=== PATIENT | female | born 1970 | race Caucasian/White ===

== ENCOUNTER → 2022-07-06 15:25 | Outpatient (BNVA) | payer OTHER, SELFPAY | PROVIDERS: PCP Internal Medicine; Referring Provider Internal Medicine; Visit Provider Physician Assistant Surgical | DX: Z13.89 Encounter for screening for other disorder (principal) ==

== ENCOUNTER → 2022-07-07 08:06 | Outpatient (BNVA) | payer OTHER, SELFPAY | PROVIDERS: PCP Internal Medicine; Visit Provider Surgery | DX: Z13.89 Encounter for screening for other disorder (principal) ==

== ENCOUNTER 2022-07-21 07:42 | Outpatient (REF) | payer OTHER, SELFPAY ==
--- NOTE | ~2022-07-21 | XR_ITS ---
EXAMINATION: XR CHEST CLINICAL INFORMATION: Bariatric service evaluation; E66.9. COMPARISON: None available. TECHNIQUE: 2 views of the chest were obtained. FINDINGS: Lungs are clear. The heart is normal in size. There is tapering at the cardiophrenic angles consistent with areolar tissue. The costophrenic sulci are clear. No effusion. Vascularity is normal. The hilar contours and visualized bony structures are unremarkable. There are surgical clips right upper abdomen, likely prior cholecystectomy. XR/XR chest 2V IMPRESSION: Unremarkable chest exam.
--- NOTE | 2022-07-21 07:48 | ECG_ITS ---
Test Reason : e66.01 Blood Pressure : / mmHG Vent. Rate : 090 BPM Atrial Rate : 090 BPM P-R Int : 136 ms QRS Dur : 078 ms QT Int : 358 ms P-R-T Axes : 072 037 053 degrees QTc Int : 437 ms Normal sinus rhythm Nonspecific ST and T wave abnormality Borderline ECG No previous ECGs available Referred By: [facility] [place] Electronically Signed By:ISABEL CARBONE
[2022-07-21 07:58] LABS: MANUAL DIFF FLAG NO
[2022-07-21 08:29] LABS: Basophils Absolute Auto 0.1 X10*3/uL (0.0-0.2); Eosinophils Absolute Auto 0.5 X10*3/uL (0.0-0.4); Eosinophils Percent Auto 5.8 % (0-4); Hematocrit 43.3 % (37.0-47.0); Hemoglobin 14.5 g/dl (12.0-16.0); Imm Gran Abs Auto 0.02 X10*3/uL (0.00-0.03); Imm Gran Pct Auto 0.2 % (0.0-0.4); Lymphocytes Absolute Auto 1.9 X10*3/uL (1.2-4.9); Lymphocytes Percent Auto 20.8 % (20-40); Mean Corpuscular HGB Conc 33.5 g/dl (31.0-35.0); Mean Corpuscular Hemoglobin 31.5 pg (27.0-33.0); Mean Corpuscular Volume 94.1 fL (80.0-98.0); Mean Platelet Volume 12.8 fL (9.4-12.3); Monocytes Absolute Auto 0.7 X10*3/uL (0.1-1.2); Monocytes Percent Auto 7.7 % (2-11); Neutrophils Absolute Auto 5.8 x10*3/uL (2.0-8.3); Neutrophils Percent Auto 64.5 % (45-73); Platelet Count 221 X10*3/uL (160-400); Red Cell Distribution Width 12.8 % (11.0-16.0); White Blood Count 8.9 X10*3/uL (4.8-10.8)
[2022-07-21 08:46] LABS: Estimated Average Glucose 105 mg/dL; Hemoglobin A1c % 5.3 %
[2022-07-21 09:07] LABS: Alanine Aminotransferase 39 U/L (0-31); Albumin Level 4.1 g/dL (3.5-5.0); Alkaline Phosphatase 110 U/L (39-117); Anion Gap 18 (12-20); Aspartate Amino Transferase 30 U/L (5-31); Bilirubin Total 0.6 mg/dL (0.0-1.0); Blood Urea Nitrogen 13 mg/dL (9-16); C Reactive Protein 0.84 mg/dL (< or = 0.50); Calcium 9.3 mg/dL (8.4-10.2); Carbon Dioxide 20 mmol/L (22-29); Chloride 105 mmol/L (96-108); Cholesterol 144 mg/dL; Estimated Glomerular Filt Rate 57; Glucose Random 98 mg/dL (60-115); HDL Cholesterol 33 mg/dL; Iron 64 mcg/dL (30-160); LDL Cholesterol Calculated 91 mg/dl; Percent Iron Saturation 20 % (15-50); Potassium 4.4 mmol/L (3.3-5.1); Sodium 139 mmol/L (135-145); Total Iron Binding Capacity 321 mcg/dL (228-428); Total Protein 7.4 g/dL (6.5-8.0); Triglycerides 100 mg/dL; Unsaturated Iron Binding 257 ug/dL
[2022-07-21 09:36] LABS: Ferritin 79 ng/mL (10-250); Folate 11.3 ng/mL (> or = 4.0); Insulin 28 uU/mL (2-29); TSH reflex Free T4 1.49 uIU/mL (0.32-4.0); Vitamin B12 323 pg/mL (200-900)
[2022-07-24 15:29] LABS: Calcium (PTHI) 9.6 mg/dL (8.6-10.4); PTHI 33 pg/mL (16-77)
[2022-07-26 12:03] LABS: Zinc 68 mcg/dL (60-130)
[2022-07-27 10:38] LABS: Vitamin A 49 mcg/dL (38-98)
[2022-07-27 16:33] LABS: Vitamin B1 7 nmol/L (8-30)
== END 2022-07-21 07:43 | disposition home or self-care (01) ==
LOC: HO.XRAY 07:42
PROVIDERS: PCP Student in an Organized Health Care Education/Training Program; Visit Provider Surgery
DX: E66.9 Obesity, unspecified (principal); Z68.38 Body mass index [BMI] 38.0-38.9, adult; K21.9 Gastro-esophageal reflux disease without esophagitis; R73.03 Prediabetes; J44.9 Chronic obstructive pulmonary disease, unspecified; E78.5 Hyperlipidemia, unspecified; I10 Essential (primary) hypertension
CPT/HCPCS: 36415; 71046; 80053; 80061; 82306; 82607; 82728; 82746; 83036; 83525; 83540; 83970; 84425; 84443; 84590; 84630; 85025; 86140; 93005

== ENCOUNTER → 2022-07-31 09:33 | Outpatient (BNVA) | payer OTHER, SELFPAY | PROVIDERS: PCP Internal Medicine; Visit Provider Surgery | DX: Z13.89 Encounter for screening for other disorder (principal) ==

== ENCOUNTER → 2022-08-08 09:46 | Outpatient (BNVA) | payer OTHER, SELFPAY | PROVIDERS: PCP Internal Medicine; Visit Provider Dietitian, Registered | DX: E66.9 Obesity, unspecified (principal); R73.03 Prediabetes; Z71.3 Dietary counseling and surveillance | CPT/HCPCS: 97802 ==

== ENCOUNTER → 2022-08-09 12:30 | Outpatient (BNVA) | payer OTHER, SELFPAY | PROVIDERS: PCP Internal Medicine; Visit Provider Counselor Mental Health | DX: F43.23 Adjustment disorder with mixed anxiety and depressed mood (principal); E66.9 Obesity, unspecified ==

== ENCOUNTER 2022-08-10 08:17 | Outpatient (REF) | payer OTHER, SELFPAY ==
--- NOTE | ~2022-08-10 | US_ITS ---
EXAMINATION: US COMPLETE ABDOMEN WITH LIVER ELASTOGRAPHY CLINICAL INFORMATION: Obesity COMPARISON: None available. TECHNIQUE: Real-time imaging of the abdominal viscera. Noninvasive ultrasound liver fibrosis assessment is performed using Stephenie ElastPQ point quantification shear wave elastography (2D-SWE) with a C5-2 MHz transducer. Multiple elastography samples are obtained. FINDINGS: PANCREAS: Normal. ABDOMINAL AORTA: The proximal, middle, and distal aortic segments are normal in caliber. INFERIOR VENA CAVA: Visualized portions are normal. LIVER: Normal. The liver demonstrates normal size, contour and echogenicity. No focal lesion or intrahepatic biliary duct dilatation. The right lobe measures 14 cm in length. The left lobe measures 10 cm in length. Portal flow is normal/hepatopedal Shear wave liver elastography median stiffness is 1.8 m/s (reference: normal median stiffness is 1.3 m/s or less). IQR/median stiffness to assess sampling precision is 0.1 (reference: good quality data set is IQR/median stiffness of 0.15 or less). GALLBLADDER: Surgically removed. COMMON BILE DUCT: Normal in caliber measuring 0.3 cm in diameter. RIGHT KIDNEY: Normal. No hydronephrosis. No renal calculi or focal parenchymal lesions. The kidney measures 9 cm in maximum dimension. LEFT KIDNEY: Normal. No hydronephrosis. No renal calculi or focal parenchymal lesions. The kidney measures 10 cm in maximum dimension. SPLEEN: Normal. The spleen measures 10 cm in maximum dimension. 1.5 cm splenule. FREE FLUID: None. US/US abdomen comp w elastography IMPRESSION: 1. Impression: Unremarkable exam 2. Liver elastography: Adequate liver sampling. Minimally elevated liver stiffness. REFERENCE: Society of Radiologists in Ultrasound Liver Stiffness Thresholds (2020): LIVER STIFFNESS THRESHOLDS: *Liver Stiffness equal or less than 1.3 m/s: High probability of being normal. *Liver Stiffness less than 1.7 m/s: In the absence of other known clinical signs, rules out compensated advanced chronic liver disease. *Liver Stiffness 1.7-2.1 m/s: Suggestive of compensated advanced chronic liver disease but need further test for confirmation. *Liver Stiffness over 2.1 m/s: Rules in compensated advanced chronic liver disease. *Liver Stiffness over 2.4 m/s: Suggestive of clinically significant portal hypertension. QUALITY OF DATA SET: *IQR/Median value equal or less than 0.15 implies a quality data set. *IQR/Median value over 0.15 implies a poor quality data set. SIGNIFICANT CHANGE FROM PRIOR EXAM: Significant change if liver stiffness measurement is 10% or greater from prior exam. OTHER CONSIDERATIONS: The stage of liver fibrosis may be overestimated in the setting of acute hepatitis, liver inflammation, elevated liver function tests, hepatic vascular congestion, obstructive cholestasis, non-fasting state, and infiltrative diseases such as amyloidosis and lymphoma. In some patients with NAFLD, the liver stiffness thresholds for compensated advanced chronic liver disease may be lower. In causes other than viral hepatitis and NAFLD, liver stiffness thresholds are not well established.
== END 2022-08-10 08:18 | disposition home or self-care (01) ==
LOC: HO.US 08:17
PROVIDERS: PCP Student in an Organized Health Care Education/Training Program; Visit Provider Surgery
DX: E66.9 Obesity, unspecified (principal); I10 Essential (primary) hypertension; E78.5 Hyperlipidemia, unspecified; R73.03 Prediabetes; K21.9 Gastro-esophageal reflux disease without esophagitis; J44.9 Chronic obstructive pulmonary disease, unspecified; Z68.38 Body mass index [BMI] 38.0-38.9, adult
CPT/HCPCS: 76705; 76981

== ENCOUNTER → 2022-08-14 07:53 | Outpatient (BNVA) | payer OTHER, SELFPAY | PROVIDERS: PCP Internal Medicine; Referring Provider Internal Medicine; Visit Provider Physician Assistant Surgical ==

== ENCOUNTER 2022-08-15 19:57 | Outpatient (REF) | payer OTHER, SELFPAY ==
[2022-08-17 14:53] LABS: H Pylori Breath Test Negative (Negative)
== END 2022-08-15 19:58 | disposition home or self-care (01) ==
LOC: HO.LNP 19:57
PROVIDERS: Visit Provider Surgery
DX: E66.9 Obesity, unspecified (principal); K21.9 Gastro-esophageal reflux disease without esophagitis
CPT/HCPCS: 83013

== ENCOUNTER 2022-08-29 09:26 | Outpatient (REF) | payer OTHER, SELFPAY ==
--- NOTE | ~2022-08-29 | FL_ITS ---
EXAMINATION: XR FLUOROSCOPY UPPER GI WITH AIR CLINICAL INFORMATION: Obesity preop. History of heartburn COMPARISON: None available. TECHNIQUE: Routine upper GI air-contrast study was performed. FINDINGS: Following oral administration of thick barium and effervescent granules in upright view there is normal propagation bolus from the oral cavity through the pharynx, esophagus into stomach without any evidence of obstruction, narrowing or stricture. On placing patient supine and prone lying, the course, caliber and peristalsis of the stomach is normal. The mucosal pattern of the stomach and the duodenum is normal. There is moderate gastroesophageal reflux without hiatal hernia. There is a small to moderate size diverticulum in the second segment of the duodenum FLUOROSCOPY TIME: 1.7 minutes DOSE AREA PRODUCT: 36.934 uGy-m2 (microgray-meter squared) FL/FL upper GI w air IMPRESSION: Moderate gastroesophageal reflux without hiatal hernia.
== END 2022-08-29 09:27 | disposition home or self-care (01) ==
LOC: HO.XRAY 09:26
PROVIDERS: PCP Internal Medicine; Visit Provider Surgery
DX: E66.9 Obesity, unspecified (principal); Z68.38 Body mass index [BMI] 38.0-38.9, adult; K21.9 Gastro-esophageal reflux disease without esophagitis
CPT/HCPCS: 74246

== ENCOUNTER → 2022-09-01 08:09 | Outpatient (BNVA) | payer OTHER, SELFPAY | PROVIDERS: PCP Internal Medicine; Visit Provider Surgery ==

== ENCOUNTER → 2022-09-12 09:36 | Outpatient (BNVA) | payer OTHER, SELFPAY | PROVIDERS: PCP Internal Medicine; Visit Provider Surgery | DX: E66.9 Obesity, unspecified (principal); R73.03 Prediabetes; Z71.3 Dietary counseling and surveillance | CPT/HCPCS: 97803 ==

== ENCOUNTER → 2022-09-14 10:00 | Outpatient (BNVA) | payer OTHER, SELFPAY | PROVIDERS: PCP Internal Medicine; Visit Provider Surgery ==

== ENCOUNTER 2022-09-20 10:33 | Day surgery (SDC) | payer OTHER, SELFPAY ==
[2022-09-14 07:12] LABS: MANUAL DIFF FLAG NO
[2022-09-14 07:48] LABS: Basophils Absolute Auto 0.1 X10*3/uL (0.0-0.2); Eosinophils Absolute Auto 0.5 X10*3/uL (0.0-0.4); Eosinophils Percent Auto 6.1 % (0-4); Hematocrit 43.1 % (37.0-47.0); Hemoglobin 14.4 g/dl (12.0-16.0); Imm Gran Abs Auto 0.01 X10*3/uL (0.00-0.03); Imm Gran Pct Auto 0.1 % (0.0-0.4); Lymphocytes Absolute Auto 1.9 X10*3/uL (1.2-4.9); Lymphocytes Percent Auto 23.7 % (20-40); Mean Corpuscular HGB Conc 33.4 g/dl (31.0-35.0); Mean Corpuscular Hemoglobin 32.1 pg (27.0-33.0); Mean Platelet Volume 14.2 fL (9.4-12.3); Monocytes Absolute Auto 0.7 X10*3/uL (0.1-1.2); Monocytes Percent Auto 8.3 % (2-11); Neutrophils Absolute Auto 4.8 x10*3/uL (2.0-8.3); Neutrophils Percent Auto 60.8 % (45-73); Platelet Count 152 X10*3/uL (160-400); Red Blood Count 4.49 X10*6/uL (4.20-5.50); Red Cell Distribution Width 12.7 % (11.0-16.0); White Blood Count 7.8 X10*3/uL (4.8-10.8)
[2022-09-14 07:52] LABS: Prothrombin Time 11.9 SEC (10.0-13.1)
[2022-09-14 07:54] LABS: Partial Thromboplastin Time 31.4 SEC (26.0-36.4)
[2022-09-14 08:36] LABS: Alanine Aminotransferase 18 U/L (0-31); Albumin Level 3.9 g/dL (3.5-5.0); Alkaline Phosphatase 92 U/L (39-117); Anion Gap 12 (12-20); Aspartate Amino Transferase 17 U/L (5-31); Bilirubin Total 0.7 mg/dL (0.0-1.0); Blood Urea Nitrogen 12 mg/dL (9-16); Calcium 9.4 mg/dL (8.4-10.2); Carbon Dioxide 25 mmol/L (22-29); Chloride 107 mmol/L (96-108); Cholesterol 124 mg/dL; Estimated Glomerular Filt Rate > 60; Glucose Random 98 mg/dL (60-115); HDL Cholesterol 38 mg/dL; LDL Cholesterol Calculated 65 mg/dl; Sodium 140 mmol/L (135-145); Total Protein 7.6 g/dL (6.5-8.0); Triglycerides 108 mg/dL
[2022-09-14 08:54] LABS: Insulin 19 uU/mL (2-29); TSH reflex Free T4 1.78 uIU/mL (0.32-4.0)
[2022-09-14 09:01] LABS: Estimated Average Glucose 100 mg/dL; Hemoglobin A1c % 5.1 %
[2022-09-14 10:17] VITALS: BMI 35.3
--- NOTE | 2022-09-16 15:15 | MHC.SHP ---
Pre-Procedural Eval Section A Date of Service: 09/16/22 The patient is an INPATIENT: No The History & Physical has been completed within 30 days and I have reviewed it.: Yes Section B Chief Complaint: Obesity, unspecified Relevant Family History (Specify if Yes): No Relevant Social History: None Present Medications: None Medical History: No relevant PMH History of Previous Operations: No relevant previous surgery Allergies: Allergies Allergy/AdvReac Type Severity Reaction Status Date / Time No Known Allergies Allergy Verified 09/12/22 10:12 Review of Systems Sugical H&P ROS: Negative: Constitution, Cardiovascular, Respiratory, Neurological, Psychiatric, Hem-Onc, Allergic/Immunologic, Gastrointestinal, Genitourinary, Musculoskeletal, Integumentary, Endocrine and Eyes/Ears/Nose/Throat Exam Surgical H&P Exam: Normal: HEENT, Normal: Heart, Normal: Lungs, Normal: Extremities, Normal: Abdomen, Normal: Skin and Normal: Neurological Plan Diagnosis/Plan: Unchanged I have reviewed the history and physical and performed a pertinent physical examination on my patient. No changes have occurred unless specified. Time Spent With Patient Time: Total time managing care of this patient today ____ minutes.
--- NOTE | 2022-09-19 09:55 | P.CONAN_ITS ---
Documented by User: Minna Wilson NP 09/19/22 09:56 HPI - Anesthesia Eval Consult details Narrative: 52yo F for Gastrectomy Sleeve,EGD,poss diaphragmatic hernia, poss ventral hernia, poss open, PMFSH Active Problems Active Problems: All Active Problems (Updated 09/14/22 @ 10:21 by Leia Wolf RN) Obesity (Acute) BMI 38.0-38.9,adult (Acute) Vitamin D deficiency (Acute) Vitamin B12 deficiency (Acute) Vitamin B1 deficiency (Acute) BMI 37.0-37.9, adult (Acute) Adjustment reaction with anxiety and depression (Acute) BMI 36.0-36.9,adult (Acute) BMI 35.0-35.9,adult (Acute) COPD (chronic obstructive pulmonary disease) (Acute) DJD (degenerative joint disease) (Acute) Insomnia (Acute) Anxiety (Acute) Depression (Acute) GERD (gastroesophageal reflux disease) (Acute) Prediabetes (Acute) Hyperlipidemia (Acute) Hypertension (Acute) Past Medical History Medical History Anxiety Arthritis BMI 35.0-35.9,adult COPD (chronic obstructive pulmonary disease) Depression DJD (degenerative joint disease) GERD (gastroesophageal reflux disease) Hyperlipidemia Hypertension Insomnia Prediabetes Seasonal allergies Smoking history Family History Family History Mother Hypertension Spinal stenosis Arthritis Kidney disease Father Diabetes Hypertension COPD (chronic obstructive pulmonary disease) Daughter Stomach problems Son Stomach problems Surgical History Surgical History (Updated 09/20/22 @ 14:25 by Mei Patel PA-C) History of ear surgery Hx of cholecystectomy Hx of colonoscopy Hx of dilation and curettage Hx of oral surgery Social History Social History (Updated 09/12/22 @ 09:43 by Marcelina Ray CMA) Household Members: None Housing: Apartment Housing Other:: mobile home Are you a primary prompt care rn to a significant other at home: No Do you presently have visiting nurse or other home services: No Alcohol intake: current Alcohol intake frequency: does not drink Patient Tobacco Use Status: Former Tobacco user Quit Date: 08/27/22 Tobacco use type: Cigarette Use of substances other than those prescribed or required for medical reasons: No Have you been hit, kicked, punched, or otherwise hurt by someone within the past year? If so, by whom?: No Do you feel safe in your current relationship?: Yes Is there a partner from a previous relationship who is making you feel unsafe now?: No Are you made to feel afraid or neglected: No Are you DNR?: No Advance Directives: No ( is primary contact) Advance Directives Information Provided: Yes Advance Directives on File: No Do you have thoughts of harming others: None Do you have a plan to hurt others: No Plan Recently lost weight without trying: No Eating poorly because of decreased appetite: No Nutrition Risks: No Nutritional Risk Patient : No FDLMP: N?A : No Poor oral hygiene: No Meds Allergies Allergy/AdvReac Type Severity Reaction Status Date / Time No Known Allergies Allergy Verified 09/20/22 10:24 Home Medications Medication Instructions Recorded Confirmed Last Taken Type acetaminophen 500 mg tablet 1,000 mg PO Q8H 07/06/22 09/12/22 Unknown History albuterol sulfate 90 mcg/actuation 2 puff inhalation Q6H PRN seasonal 07/06/22 09/14/22 Unknown History aerosol inhaler allergies clonazepam 0.5 mg tablet 0.5 mg PO DAILY PRN anxiety 07/06/22 09/14/22 Unknown History lisinopril 10 mg tablet 10 mg PO DAILY 07/06/22 09/14/22 09/19/22 History meloxicam 7.5 mg tablet 7.5 mg PO DAILY PRN pain 07/06/22 09/14/22 08/16/22 History nystatin 100,000 unit/gram topical 1 appl topical BID PRN Skin 07/06/22 09/14/22 Unknown History powder Irritation sertraline 100 mg tablet 150 mg PO QAM 07/06/22 09/14/22 09/19/22 History trazodone 100 mg tablet 100 mg PO BEDTIME 07/06/22 09/14/22 09/18/22 History pantoprazole 40 mg tablet,delayed 40 mg PO BEDTIME 09/20/22 09/20/22 09/18/22 History release Exam Exam Date and Time: September 19, 2022 0955 Height,Weight and Vital Signs: Height 5 ft 6 in Weight 99.337 kg Pertinent Lab Results Pertinent Lab Results: Laboratory Tests 09/14/22 09/14/22 09/14/22 07:05 07:10 07:10 WBC 7.8 RBC 4.49 Hgb 14.4 Hct 43.1 MCV 96.0 MCH 32.1 MCHC 33.4 RDW 12.7 Plt Count 152 L D MPV 14.2 H Immature Gran % (Auto) 0.1 Neut % (Auto) 60.8 Lymph % (Auto) 23.7 Harnett % (Auto) 8.3 Eos % (Auto) 6.1 H Baso % (Auto) 1.0 Lymph # (Auto) 1.9 [place]ett # (Auto) 0.7 Eos # (Auto) 0.5 H Baso # (Auto) 0.1 Abs Immat Gran (auto) 0.01 Absolute Neuts (auto) 4.8 Absolute Nucleated RBC 0.000 Nucleated RBC % (auto) 0.0 PT 11.9 INR 1.0 APTT 31.4 Sodium Potassium Chloride Carbon Dioxide Anion Gap BUN Creatinine Estim Creat Clear Calc Estimated GFR Random Glucose Estimat Average Glucose Hemoglobin A1c % Insulin Level Calcium Total Bilirubin AST ALT Alkaline Phosphatase C-Reactive Protein Total Protein Albumin Triglycerides Cholesterol LDL Cholesterol, Calc HDL Cholesterol TSH Blood Type O Positive Antibody Screen NEGATIVE 09/14/22 09/14/22 07:10 07:10 WBC RBC Hgb Hct MCV MCH MCHC RDW Plt Count MPV Immature Gran % (Auto) Neut % (Auto) Lymph % (Auto) [place]ett % (Auto) Eos % (Auto) Baso % (Auto) Lymph # (Auto) [place]ett # (Auto) Eos # (Auto) Baso # (Auto) Abs Immat Gran (auto) Absolute Neuts (auto) Absolute Nucleated RBC Nucleated RBC % (auto) PT INR APTT Sodium 140 Potassium 4.0 Chloride 107 Carbon Dioxide 25 Anion Gap 12 BUN 12 Creatinine 0.86 Estim Creat Clear Calc TNP Estimated GFR > 60 Random Glucose 98 Estimat Average Glucose 100 Hemoglobin A1c % 5.1 Insulin Level 19 Calcium 9.4 Total Bilirubin 0.7 AST 17 ALT 18 Alkaline Phosphatase 92 C-Reactive Protein 0.40 Total Protein 7.6 Albumin 3.9 Triglycerides 108 Cholesterol 124 LDL Cholesterol, Calc 65 HDL Cholesterol 38 TSH 1.78 Blood Type Antibody Screen Narrative Narrative: EKG 07/2022 Vent. Rate : 090 BPM ? ? Atrial Rate : 090 BPM ?? P-R Int : 136 ms? QRS Dur : 078 ms ? ? QT Int : 358 ms ? ? ? P-R-T Axes : 072 037 053 degrees ?? QTc Int : 437 ms ? Normal sinus rhythm Nonspecific ST and T wave abnormality Borderline ECG No previous ECGs available Assessment and Plan Assessment Anesthesia Assessment: Chart Reviewed Documented by User: Soto Hylton MD 09/20/22 17:09 HPI - Anesthesia Eval Consult details Narrative: 52yo F for Gastrectomy Sleeve,EGD,poss diaphragmatic hernia, poss ventral hernia, poss open, funtional status greater than 4 mets Denies any CP or SOB COPD . Will give Duo-neb treatment pre-op PMFSH Past Medical History Medical History Anxiety Arthritis BMI 35.0-35.9,adult COPD (chronic obstructive pulmonary disease) Depression DJD (degenerative joint disease) GERD (gastroesophageal reflux disease) Hyperlipidemia Hypertension Insomnia Prediabetes Seasonal allergies Smoking history Functional capacity: independent ambulation Family History Family History Mother Hypertension Spinal stenosis Arthritis Kidney disease Father Diabetes Hypertension COPD (chronic obstructive pulmonary disease) Daughter Stomach problems Son Stomach problems Family history of problems with anesthesia: No Surgical History Surgical History (Updated 09/20/22 @ 14:25 by Mei Patel PA-C) History of ear surgery Hx of cholecystectomy Hx of colonoscopy Hx of dilation and curettage Hx of oral surgery History of Problems with Anesthesia: No Social History Social History (Updated 09/12/22 @ 09:43 by Marcelina Ray CMA) Household Members: None Housing: Apartment Housing Other:: mobile home Are you a primary prompt care rn to a significant other at home: No Do you presently have visiting nurse or other home services: No Alcohol intake: current Alcohol intake frequency: does not drink Patient Tobacco Use Status: Former Tobacco user Quit Date: 08/27/22 Tobacco use type: Cigarette Use of substances other than those prescribed or required for medical reasons: No Have you been hit, kicked, punched, or otherwise hurt by someone within the past year? If so, by whom?: No Do you feel safe in your current relationship?: Yes Is there a partner from a previous relationship who is making you feel unsafe now?: No Are you made to feel afraid or neglected: No Are you DNR?: No Advance Directives: No ( is primary contact) Advance Directives Information Provided: Yes Advance Directives on File: No Do you have thoughts of harming others: None Do you have a plan to hurt others: No Plan Recently lost weight without trying: No Eating poorly because of decreased appetite: No Nutrition Risks: No Nutritional Risk Patient : No FDLMP: N?A : No Poor oral hygiene: No Meds Allergies Allergy/AdvReac Type Severity Reaction Status Date / Time No Known Allergies Allergy Verified 09/20/22 10:24 Home Medications Medication Instructions Recorded Confirmed Last Taken Type acetaminophen 500 mg tablet 1,000 mg PO Q8H 07/06/22 09/12/22 Unknown History albuterol sulfate 90 mcg/actuation 2 puff inhalation Q6H PRN seasonal 07/06/22 09/14/22 Unknown History aerosol inhaler allergies clonazepam 0.5 mg tablet 0.5 mg PO DAILY PRN anxiety 07/06/22 09/14/22 Unknown History lisinopril 10 mg tablet 10 mg PO DAILY 07/06/22 09/14/22 09/19/22 History meloxicam 7.5 mg tablet 7.5 mg PO DAILY PRN pain 07/06/22 09/14/22 08/16/22 History nystatin 100,000 unit/gram topical 1 appl topical BID PRN Skin 07/06/22 09/14/22 Unknown History powder Irritation sertraline 100 mg tablet 150 mg PO QAM 07/06/22 09/14/22 09/19/22 History trazodone 100 mg tablet 100 mg PO BEDTIME 07/06/22 09/14/22 09/18/22 History pantoprazole 40 mg tablet,delayed 40 mg PO BEDTIME 09/20/22 09/20/22 09/18/22 History release Exam Airway Mallampati Class: III Neck ROM: Full Denture: Upper and Lower Loose/Missing/Broken Teeth: Yes Assessment and Plan Assessment Anesthesia Assessment: Anesthesia Plan Discussed Final Anesthetic Review Family History of Problems with Anesthesia: No History of Problems with Anesthesia: No NPO: Yes ASA Class: III Final Preanesthetic Review: Meds/Allgs Chart Reviewed and Anes Risks/Benef Reviewed Patient Risk: Intermediate Procedure Risk: Intermediate Anesthetic Plan Anesthetic Plan: GA and Agree w/ Assess. and Plan Disposition: Standard PACU
[2022-09-19 13:43] LABS: COVID-19 Test Negative (Negative); IDNOW Serial# 08D9AD1C
[2022-09-20] VITALS (15 sets, daily range): BP systolic 117–157; BP diastolic 58–92; PULSE 71–88; RESP 12–20; TEMP 36–37.1; O2SAT 95–98
[2022-09-20] MEDS: Aprepitant 32 MG/4.4 ML VIAL IVPUSH (10:45)
[2022-09-20] MEDS: Lactated Ringers 1,000 ML 999 ML IV (10:45)
--- NOTE | 2022-09-20 12:30 | P.BOP_ITS ---
Brief Operative Note Date of Service: 09/20/22 Pre-op diagnosis: Severe obesity with comorbidities (see below) Post-op diagnosis: same Procedure: INITIAL PATIENT BMI ON PRESENTATION AT OUR OFFICE: 38.7 kg/m2 LAST BMI BEFORE SURGERY: 35.3 kg/m2 COMORBIDITIES: COPD, hypertension, hyperlipidemia, prediabetes, depression, anxiety, insomnia, GERD, liver fibrosis ?The patient presented to the Weight Management Program with significant obesity that was negatively impacting the patient's comorbidities as listed above.? The program is a phased program with a special focus on preoperative medical weight management to promote substantial weight loss and prepare the patients for the second phase of the program: bariatric surgery. The patient participated in an intensive weekly lifestyle ?intervention and exercise program during which the patient ?has lost between the initial office visit and the last preoperative visit 23.2 lbs, or % of initial actual body weight. It was deemed appropriate for the patient to now have bariatric surgery. In light of the current Covid-19 pandemic and the well documented strong association of obesity and increased risk of worse outcomes if infected with Covid-19 (REFERENCES: https://pubmed.de bi.nlm.nih.gov/80548466/ ,? https://pubmed.ncbi.nlm.nih.gov/50328035/ ), any delay in undergoing bariatric surgery may lead to the patient's worsening health condition and increased?risk of more severe Covid-19 disease if infected. In addition a recent?study from [facility] published in [facility] on 03/28/2021 ([id number]) found that, among patients with obesity, substantial weight loss achieved with surgery was associated with improved outcomes of COVID-19 infection. The findings suggest that obesity can be a modifiable risk factor for the severity of COVID-19 infection. In addition, the patient met the BMI-criteria for bariatric surgery based on the BMI on initial presentation. The patient should not be penalized for achieving such weight loss because ?it is not sustainable long-term without surgical intervention and it was achieved in preparation for bariatric surgery ?under my direction and based on my published research ([email or web address]).[email or web address] and? https://www.soard.org/article/D[address]509-[address](59)80030-X/pdf ) ?that a 10% preoperative weight loss improves long-term weight loss after surgery and reduces perioperative complications.? Insurance carriers such as [facility] have endorsed my recommendations ?and have included in their policies criteria to include a 10% preoperative weight loss requirement. PROCEDURE: Esophago-gastroscopy, laparoscopic sleeve gastrectomy and laparoscopic gastropexy INDICATIONS: This is a 52 year-old female who was electively scheduled for laparoscopic, possibly open sleeve gastrectomy. The risks and complications of the procedure were discussed with the patient in advance, particularly the possibility of ; pulmonary embolism; staple line leak; bleeding; GERD; cardiac, pulmonary, or renal complications; as well as long-term problems such as insufficient weight loss, vitamin deficiency, strictures, or ulcers. The patient understood all the risks, and was in agreement to proceed with surgery. DESCRIPTION OF PROCEDURE: After informed consent was obtained from the patient, the patient was given preoperative antibiotics, and was transferred to the operating room. After successful induction of general anesthesia, pneumatic compression devices were placed on both lower extremities. An upper endoscopy was performed next. The oropharynx and esophagus appeared to be within normal limits. There was no diaphragmatic hernia present consistent with the findings of the preoperative upper GI. The stomach was entered. Then after all fluid and air were suctioned and the stomach was fully decompressed, the scope was withdrawn and secured in the mid esophagus. The patient was then prepped and draped in the usual sterile manner, and abdominal access was established at the right upper quadrant with the Allison technique. A 12 mm blunt port was inserted, and the abdomen was insufflated with CO2 to a pressure of 15 mmHg. Under direct visualization, additional ports were placed, specifically two 5 mm Versi-step ports to the left upper quadrant, and a 5 mm Versi-Step port to the right upper quadrant. 1% lidocaine plain was used to infiltrate all port sites as well as all fascia defects. Following that, the patient was placed in a steep reverse Trendelenburg position. An additional 5 mm port was placed to the right flank for the Mediflex retractor that was used to retract the left lobe of the liver. The gastro-esophageal fat pad was opened with the ultrasonic device (Thunderbeat, Olympus) and the anterior esophagus and hiatus were exposed. The angle of His was opened with the ultrasonic device the fundus of the stomach from any diaphragmatic and splenic attachments. I then opened the gastrocolic ligament between the transverse colon and the greater curvature of the stomach with the ultrasonic device to enter the lesser sac and facilitate the ligation of the short gastric vessels. I started at a mid-point along the greater curvature and using the Thunderbeat, all short gastric vessels were divided all the way to the angle of His until the left carolina was completely dissected at its entirety. I then divided the gastro-colic ligament distally to a distance of about 3-4 cm proximal to the pylorus. ? The stomach was then divided transversely with one Endo YIFAN-45 purple and four YIFAN-60 articulating orange loads using the AEON stapler and loads. Every effort was made that the gastric sleeve had a tubular shape and an even caliber throughout. Once the sleeve resection was completed, the staple line of the gastric sleeve was reinforced with Hemoclips. The resected stomach was retrieved without difficulty from the Allison port. A gastropexy was then performed in order to prevent postoperative GERD and partial gastric volvulus. Several interrupted 2.0 Surgidac sutures were placed between the sleeve's staple line and the previously divided greater omentum and gastro-colic ligament using the Endo-Stitch device. ?An upper endoscopy was performed. There was no narrowing at the GE junction. The scope was easily advanced all the way to the pylorus which was clearly visualized. There was no narrowing anywhere and the sleeve's caliber was even throughout. The sleeve's staple line was inspected and there was no evidence of ischemia, bleeding or dehiscence. At that point the gastroscope was withdrawn from the patient?s mouth while we were decompressing the bowel and the stomach from any remaining air. I looked into the lesser sac to see how the sleeve was situating and it was situating well. There was no bleeding from the staple line, spleen, or short gastric vessels. The Mediflex retractor was removed, and the undersurface of the liver was inspected and there was no bleeding. The patient was placed in supine position. I closed the fascial defect of the 12 mm port site with a figure of eight #1 Polysorb suture. Then 30cc Ropivacaine plain with 10 mg of Dexamethasone were used to infiltrate the fascial closure as well as all skin incisions. A total of 7ml Zynrelef was applied in the Allison wound. At this point, the abdomen was deflated, all ports were removed under direct vision, and no bleeding was noted from any of the port sites. The skin incisions were irrigated with saline and were closed with 4-0 absorbable monofilament sutures. Steri-Strips and OpSites were used to cover all incisions. The patient was extubated and was transferred in stable condition to the recovery room for further care. I was present and performed all garcía parts of the procedure. Ms. Patel was the first officer. There were no residents to assist with this case. Darien Eagle MD, PhD, FACS Surgeon: Ze Eagle MD Anesthesia: GETA, local and other (TAP block and 7ml Zynrelef) Was an Animal Daycare Provider used for this Procedure?: No Animal Daycare Provider: Mei Patel Estimated blood loss (mL): 10 IV fluids (mL): 2,000 Urine output (mL): 0 (No Peck to record output) Pathology: other (stomach) Condition: stable Disposition: PACU
--- NOTE | 2022-09-20 12:33 | PM.PNGS ---
Subjective Subjective Date of Service: 09/21/22 Interval history: Feels well. Has some incisional pain and nausea. Feels better now. She is tolerating phase 1 bariatric diet Physical Exam Vital Signs: Vital Signs: Last Vital Signs Temp 98.1 F 09/20/22 10:25 Pulse 82 09/20/22 10:25 Resp 15 09/20/22 10:25 BP 136/92 H 09/20/22 10:25 Pulse Ox 96 09/20/22 10:25 BMI result Body Mass Index 35.3 GI: Inspection: Yes normal to inspection, Yes incision (clean, dry and intact) and Yes obesity Palpation (GI): Soft to palpation Extrem: Right lower extremity: normal to inspection (no calf tenderness) Left lower extremity: normal to inspection (no calf tenderness) Objective Data Active Medications Albuterol Sulfate (Albuterol Sulfate (0.083%) 2.5 Mg/3 Ml Vial.Neb) 2.5 mg INHALE ONCE PRN PRN Reason: Shortness of Breath/Wheezing Lactated Ringer's (Lr) 1,000 mls @ 100 mls/hr IVCONT .Q10H MARY Labs 09/14/22 07:10 09/14/22 07:10 Labs: Laboratory Results - last 24 hr 09/19/22 13:05 COVID-19 (ANGELINA) Negative COVID-19 Clin Com See Note Procedures Date of Service Date of Service: 09/21/22 Progress Note: A&P Assessment and plan (1) Obesity: Status: Acute Assessment and Plan: s/p laparoscopic sleeve gastrectomy and gastropexy Doing well Will check am labs and if OK the patient will be discharged home (2) BMI 35.0-35.9,adult: Status: Acute (3) COPD (chronic obstructive pulmonary disease): Status: Acute (4) DJD (degenerative joint disease): Status: Acute (5) Insomnia: Status: Acute (6) Depression: Status: Acute (7) Anxiety: Status: Acute (8) GERD (gastroesophageal reflux disease): Status: Acute (9) Prediabetes: Status: Acute (10) Hyperlipidemia: Status: Acute (11) Hypertension: Status: Acute (12) Liver fibrosis: Status: Acute (13) S/P laparoscopic sleeve gastrectomy: Status: Acute Time Spent With Patient Time: Total time managing care of this patient today ____ minutes. Quality Stroke Does the patient have a stroke diagnosis?: No VTE Prior VTE?: No VTE Risk Level:: Surgical - moderate VTE Device Contraindication: N/A - Device Ordered VTE Drug Contraindication: Treatment Not Indicated
--- NOTE | 2022-09-20 14:27 | P.DS_ITS ---
DS: Providers Provider Date of Service: 09/21/22 Primary care physician: Nathaly Treviño MD DS: Diagnosis Discharge Diagnosis (1) Obesity: Status: Acute (2) BMI 35.0-35.9,adult: Status: Acute (3) COPD (chronic obstructive pulmonary disease): Status: Acute (4) DJD (degenerative joint disease): Status: Acute (5) Insomnia: Status: Acute (6) Depression: Status: Acute (7) Anxiety: Status: Acute (8) GERD (gastroesophageal reflux disease): Status: Acute (9) Prediabetes: Status: Acute (10) Hyperlipidemia: Status: Acute (11) Hypertension: Status: Acute (12) Liver fibrosis: Status: Acute DS: Summary Hospital Course Hospital Course: ADMITTING DIAGNOSIS: morbid obesity, HTN, hyperlipidemia, GERD, depression DISCHARGE DIAGNOSIS: same, s/p laparoscopic sleeve gastrectomy PAST SURGICAL HISTORY: cholecystectomy PROCEDURE: upper endoscopy, laparoscopic sleeve gastrectomy DISCHARGE SUMMARY: History of Present Illness: The patient is a 52 year-old woman with a BMI of 38.7 kg/m2 and associated co- morbidities as described above. The patient had extensive work-up, lost 20.6 lbs preoperatively and was electively scheduled for laparoscopic, possible open sleeve gastrectomy and gastropexy. Risks and complications of the surgery were discussed with the patient in advance, particularly the possibility of , pulmonary embolism, anastomotic leak, bleeding, bowel injury, GERD, cardiac, renal or pulmonary complications. The patient understood all the risks and was in agreement with the surgical plan. Hospital Course: The patient underwent an uneventful laparoscopic sleeve gastrectomy with gastropexy on the day of admission. Postoperatively, the patient was transferred to the surgical floor. The patient received IV Acetaminophen and IV dilaudid for pain control. Patient was started on bariatric phase 1 diet POD #0. On postoperative day one, the patient was feeling well without nausea, vomiting, fevers, or tachycardia. The patient had some mild incisional pain and the abdomen was soft. On the morning of postoperative day one, the patient was continued on 1 ounce of water or ice every half hour. During the day, the patient did fairly well, having some incisional pain, but able to ambulate adequately and to tolerate liquids well. Since the patient is doing well, we decided that the patient was ready to be discharged. The patient was given instructions to follow-up with me next week and to call my office for any fever over 101, persistent abdominal pain, nausea, vomiting, GERD, symptoms of DVT such as calf tenderness, or leg swelling, or pulmonary embolism such as chest pain or shortness of breath. The patient was also instructed to drink 40-60 ounces of liquids per day using the 1-ounce cups. The patient had been given prescriptions for Tylenol for pain, Zofran prn for nausea, and pantoprazole and carafate previously. The patient was encouraged to ambulate and use the incentive spirometer. The patient was allowed to shower, but no baths, and encouraged to stay active at home. All of these instructions were given to the patient personally. All questions were answered and the patient understood all instructions, the instructions were also given to the patient in print. Time Spent with Patient Time attestation: Total time managing care of this patient today ____ minutes. Discharge coordination time: Less than 30 minutes Quality: Safe Use of Opioids Does Pt have an Active Cancer Diagnosis on the Problem List?: No Quality: Stroke Does the patient have a stroke diagnosis?: No Physical Exam Vital Signs: Vital Signs: Last Vital Signs Temp 98.1 F 09/20/22 10:25 Pulse 82 09/20/22 10:25 Resp 15 09/20/22 10:25 BP 136/92 H 09/20/22 10:25 Pulse Ox 96 09/20/22 10:25 BMI result Body Mass Index 35.3 DS: Data Data Completed and Pending Pending studies at discharge: Pending at discharge 09/20/22 14:03 Surgical [PTH] Routine Discharge Plan Discharge Patient Disposition: Home, Self-Care Referrals: Nathaly Treviño MD [Primary Care Provider] - Discharge Medications: Continued pantoprazole 40 mg tablet,delayed release (DR/EC) 40 mg PO BEDTIME clonazepam 0.5 mg tablet 0.5 mg PO DAILY PRN (Reason: anxiety) nystatin 100,000 unit/gram powder 1 appl topical BID PRN (Reason: Skin Irritation) sertraline 100 mg tablet 150 mg PO QAM albuterol sulfate 90 mcg/actuation HFA aerosol inhaler 2 puff inhalation Q6H PRN (Reason: seasonal allergies) sucralfate 100 mg/mL suspension 10 ml PO BID Qty: 400 2RF ondansetron 4 mg tablet,disintegrating 4 mg PO Q12H Qty: 20 0RF Rx Instructions: Only take one every 12 hours as needed if you have nausea Held trazodone 100 mg tablet 100 mg PO BEDTIME Hold Instructions: Resume on 09/25/22. lisinopril 10 mg tablet 10 mg PO DAILY Hold Instructions: Resume on 09/22/22. Check your blood pressure every evening and send it to Dr. Eagle. Do not take the medication before you hear from Dr. Eagle. Do not take the medication if your blood pressure is below 120/70 mmHg. Discontinued cholecalciferol (vitamin D3) 125 mcg (5,000 unit) capsule 125 mcg PO DAILY Qty: 30 2RF mecobalamin (vitamin B12) 1,000 mcg tablet,disintegrating 1,000 mcg sublingual DAILY Qty: 30 2RF Rx Instructions: place tablet under tongue and allow to dissolve for at least30 secs before swallowing meloxicam 7.5 mg tablet 7.5 mg PO DAILY PRN (Reason: pain) acetaminophen 500 mg tablet 1,000 mg PO Q8H thiamine HCl (vitamin B1) 100 mg tablet 100 mg PO DAILY Qty: 30 2RF Discharge Orders: Discharge Order (Routine); Ordered 09/21/22 Ordered By: Mei Patel Activity on Discharge: No heavy lifting Activity Restrictions/Additional Instructions: No tub baths, sex or returning to work until discussed at first post op appointment. No exercise, alcohol, tobacco or illegal drug use. Continue to use incentive spirometer hourly while awake. Walk in home for 5- 10 minutes every 2 hours during the first week. Continue phase 1 diet today and start phase 2 diet tomorrow morning. Follow all instructions in the bariatric handbook and call with any questions. 1. Please call your doctor or come back to the emergency room should any new symptoms arise. 2. You will receive a courtesy call from [facility] 24-48 hours after discharge. 3. Activity: abstain from alcohol, practice limited stair climbing, no bending, no driving, no exercise, no illicit substances, no lifting, no sex, no tub bath, no work. 4. Diet: continue as discussed with bariatric team.. 5. Dressing Change/Wound Care: Do not change or remove surgical dressings unless they are wet or soiled. 6. Call your doctor if: - Your temperature exceeds 101.5 F - You experience excessive pain or swelling - You have an unexpected reaction to medication - You have excessive bleeding - You experience continued vomiting/nausea - Your incision begins to separate - Your incision shows signs of infection such as increased redness, swelling, excessive pain, heat, or drainage (light blood or clear fluid is normal) 7. General instructions: No lifting greater than 5 lbs for the next 4 weeks[address] driving within 24 hours of taking narcotic pain medications. If you do not move your bowels in the next 2 days, please take milk of magnesia over the counter. Please follow the post op diet and do not advance your diet until you are seen in the office in about 2 weeks. Please walk around your home every hour or two to prevent blood clots from forming in your legs. You do not need to wake from sleeping to walk. Please sleep in a bed or couch to prevent kinking at the hips and knees. Please take your incentive spirometer (your lung bilingual kindergarten teacher) home with you and use it for the next few days to prevent pneumonias. You may shower, no hot tubs, baths or swimming pools. Please call the office with any questions or concerns such as increasing abdominal pain, fever, chills, shortness of breath, chest pain, leg pain or swelling, or redness or drainage from your incisions. Do not hesitate to contact the office with any questions at . The patient's medical history has been reviewed and they are considered low risk for post op DVT and therefore DVT prophylaxis is not considered necessary. Travel after surgery was reviewed. The patient has not disclosed any travel plans during the first 30 days after surgery and they have been advised that within the first 30 days after surgery any bus, plane, train or car travel over 2 hours in duration is contraindicated due to the possibility of developing blood clots from immobility. Any travel, needs to include periods of ambulation of 10 minutes in duration every 2 hours. The patient was instructed to discuss any plans for travel during this period with their bariatric surgeon. Discharge Date/Time: 09/21/22 14:04
[2022-09-20] MEDS: ondansetron HCL 4 MG/2 ML VIAL IVPUSH (14:45)
[2022-09-20 14:47] LABS: Hematocrit 39.1 % (37.0-47.0)
--- NOTE | 2022-09-20 14:55 | PHA.MEDREC ---
Pharmacy Consult ? Medication Reconciliation Pharmacy has reviewed the medication reconciliation done by RN
[2022-09-20 15:07] LABS: Anion Gap 18 (12-20); Blood Urea Nitrogen 9 mg/dL (9-16); Calcium 8.7 mg/dL (8.4-10.2); Carbon Dioxide 18 mmol/L (22-29); Chloride 107 mmol/L (96-108); Creatinine Clr Calc Pharmacy 94.1; Estimated Glomerular Filt Rate > 60; Glucose Random 115 mg/dL (60-115); Potassium 3.4 mmol/L (3.3-5.1); Sodium 140 mmol/L (135-145)
[2022-09-20] MEDS: fentaNYL citrate/PF 100 MCG/2 ML VIAL 25 MCG IVPUSH (16:01)
[2022-09-20] MEDS: Famotidine/PF 20 MG/2 ML VIAL IVPUSH ×2 (16:41→20:04)
[2022-09-20] MEDS: Lactated Ringers 1,000 ML 100 ML IVCONT (16:46)
[2022-09-20] MEDS: ceFAZolin Sodium/Dextrose,Iso 2 GM/50 ML PIGGYBACK IV (17:19)
[2022-09-20] MEDS: Metoclopramide HCl 10 MG/2 ML VIAL IVPUSH (18:24)
[2022-09-20] MEDS: Acetaminophen 1,000 MG/100 ML PIGGYBACK 400 MG IV (20:04)
[2022-09-20] MEDS: traZODone HCL 100 MG TABLET PO (20:07)
[2022-09-20] MEDS: lisinopriL 10 MG TABLET PO (20:07)
[2022-09-20] MEDS: 0.9 % Sodium Chloride Flush 3 ML SYRINGE IVFLUSH (20:08)
[2022-09-21] MEDS: Acetaminophen 1,000 MG/100 ML PIGGYBACK 400 MG IV ×2 (02:25→09:08)
[2022-09-21] MEDS: Lactated Ringers 1,000 ML 100 ML IVCONT (02:25)
[2022-09-21 03:42] VITALS: BP 138/78; PULSE 57; RESP 16; TEMP 36; O2SAT 96
[2022-09-21 05:56] LABS: Basophils Percent Auto 0.2 % (0-2); Hematocrit 40.1 % (37.0-47.0); Hemoglobin 13.4 g/dl (12.0-16.0); Imm Gran Abs Auto 0.06 X10*3/uL (0.00-0.03); Imm Gran Pct Auto 0.5 % (0.0-0.4); Lymphocytes Absolute Auto 0.9 X10*3/uL (1.2-4.9); Lymphocytes Percent Auto 7.2 % (20-40); MANUAL DIFF FLAG SCAN; Mean Corpuscular HGB Conc 33.4 g/dl (31.0-35.0); Mean Corpuscular Hemoglobin 31.3 pg (27.0-33.0); Mean Corpuscular Volume 93.7 fL (80.0-98.0); Mean Platelet Volume 14.3 fL (9.4-12.3); Monocytes Absolute Auto 0.9 X10*3/uL (0.1-1.2); Monocytes Percent Auto 7.5 % (2-11); Neutrophils Absolute Auto 10.1 x10*3/uL (2.0-8.3); Neutrophils Percent Auto 84.6 % (45-73); Platelet Count 143 X10*3/uL (160-400); Red Blood Count 4.28 X10*6/uL (4.20-5.50); Red Cell Distribution Width 12.4 % (11.0-16.0); SCAN SMEAR FLAG 1; White Blood Count 11.9 X10*3/uL (4.8-10.8)
[2022-09-21 05:58] LABS: PLT ABN DIST 1
[2022-09-21 06:04] LABS: Anion Gap 14 (12-20); Blood Urea Nitrogen 6 mg/dL (9-16); Calcium 9.5 mg/dL (8.4-10.2); Carbon Dioxide 20 mmol/L (22-29); Chloride 107 mmol/L (96-108); Creatinine Clr Calc Pharmacy 101.2; Estimated Glomerular Filt Rate > 60; Glucose Random 139 mg/dL (60-115); Potassium 4.2 mmol/L (3.3-5.1); Sodium 137 mmol/L (135-145)
[2022-09-21 06:17] LABS: SLIDE REVIEW VERIFIED
[2022-09-21] MEDS: ondansetron HCL 4 MG/2 ML VIAL IVPUSH (06:32)
[2022-09-21 07:39] VITALS: BP 136/68; PULSE 60; RESP 16; TEMP 36.7; O2SAT 97
[2022-09-21] MEDS: Famotidine/PF 20 MG/2 ML VIAL IVPUSH (07:44)
[2022-09-21] MEDS: Sertraline HCL 50 MG TABLET 150 MG PO (07:47)
[2022-09-21] MEDS: Metoclopramide HCl 10 MG/2 ML VIAL IVPUSH (09:09)
--- NOTE | 2022-09-21 11:15 | MHC.CM.PN ---
Addendum entered by Edyta Santiago 09/21/22 14:49: PT WILL DC HOME TODAY WITH NO SERVICES Original Note: PT REPORTS SHE LIVES WITH HER AND IS INDEPENDENT WITH CARE PT HAS NO DME AND USES NO SERVICES SHE DECLINES TO COMPLETE A HCP TODAY, BUT DOES ACCEPT THE INFORMATION AND DOCUMENT TO CONSIDER AT A LATER TIME PCP: OBEY CARRION DCP: HOME NO SERVICES VIA FAMILY TRANSPORT
[2022-09-21 11:37] VITALS: BP 143/74; PULSE 63; RESP 18; TEMP 36.6; O2SAT 96
[2022-09-21 11:42] VITALS: O2SAT 96
--- NOTE | 2022-09-21 13:55 | HO.POSTANES ---
Post Anesthesia Evaluation Post Anesthesia Evaluation Date of Service: 09/21/22 Vital Signs: Vital Signs Temp Pulse Resp BP Pulse Ox O2 Del Method 09/21/22 11:42 96 Room Air 09/21/22 11:37 97.9 F 63 18 143/74 H 96 Room Air 09/21/22 07:39 98.1 F 60 16 136/68 97 Room Air 09/21/22 03:42 96.8 F 57 16 138/78 96 Room Air Anesthesia: General Endotracheal-GETA Mental Status: Awake Pain Control: Satisfactory Nausea/Vomiting: None Hydration: Adequate Anesthesia-Related Issues: No Anes. Related Issues
== END 2022-09-21 14:04 | disposition home or self-care (01) ==
LOC: HO.SSS 14:25 → HO.S3 14:49
PROVIDERS: Physician Assistant; Physician Assistant Surgical; PCP Internal Medicine; Visit Provider Surgery
PROC: (CPT 43845; principal; 2022-09-20 12:40)
DX: E66.9 Obesity, unspecified (principal); Z68.35 Body mass index [BMI] 35.0-35.9, adult; J44.9 Chronic obstructive pulmonary disease, unspecified; I10 Essential (primary) hypertension; E78.5 Hyperlipidemia, unspecified; R73.03 Prediabetes; K21.9 Gastro-esophageal reflux disease without esophagitis; K74.00 Hepatic fibrosis, unspecified; G47.00 Insomnia, unspecified; K44.9 Diaphragmatic hernia without obstruction or gangrene; F32.A Depression, unspecified; F41.9 Anxiety disorder, unspecified; M19.90 Unspecified osteoarthritis, unspecified site; E53.8 Deficiency of other specified B group vitamins; E51.9 Thiamine deficiency, unspecified; E55.9 Vitamin D deficiency, unspecified; J30.2 Other seasonal allergic rhinitis; Z20.822 Contact with and (suspected) exposure to COVID-19; Z87.891 Personal history of nicotine dependence; Z79.899 Other long term (current) drug therapy
CPT/HCPCS: 43775; 43659; 36415; 80048; 80053; 80061; 83036; 83525; 84443; 85014; 85018; 85025; 85610; 85730; 86140; 86850; 86900; 86901; 87635; 88304; 88305; 88307; 88342; A4649; C9088; C9145; J0131; J0690; J1100; J1170; J2250; J2405; J2550; J2765; J2795; J3010

== ENCOUNTER → 2022-09-26 09:42 | Outpatient (BNVA) | payer OTHER, SELFPAY | PROVIDERS: PCP Internal Medicine; Visit Provider Physician Assistant Surgical ==

== ENCOUNTER → 2022-10-10 10:42 | Outpatient (BNVA) | payer OTHER, SELFPAY | PROVIDERS: PCP Internal Medicine; Visit Provider Dietitian, Registered | DX: E66.9 Obesity, unspecified (principal); R73.03 Prediabetes; Z71.3 Dietary counseling and surveillance | CPT/HCPCS: 97803 ==

== ENCOUNTER 2022-10-24 08:18 | Outpatient (AMB) | payer OTHER, SELFPAY ==
--- NOTE | 2022-10-24 08:23 | A.OFFVIS_ITS ---
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 Presents for 1 month post op visit. Weight today is 195.8 pounds, with a BMI of 31.6. There has been a 44.2 pound weight loss,(initial weight 240 pounds) since starting the program on 07/07/22 reflecting a 18.4% total body weight loss and a weight loss of 22.7 pounds since surgery (operative weight 218.5 pounds) reflecting a 10.3% TBWL since surgery. No complaints of nausea, emesis, abdomin al pain or reflux. Reports infrequent but normal bowel movements every 1-2 days and uses stool softeners regularly. Original weight on 07/07/22 was 240 pounds and op weight was 218.5 pounds. Present meal plan includes: malaysian yogurt daily yogurt drink 10 gram protein daily mashed potatoes Previously doing Orgain, now doesn't like Tried Baiyaxuan core power Is willing to try isopure flavorless Drinking 50 oz ? Exercise routine includes: stationary bike 2 x per day 500 calories each session, walking 0.5-1 mile 5 days per week PFSH Medical History Anxiety Arthritis BMI 35.0-35.9,adult COPD (chronic obstructive pulmonary disease) Depression DJD (degenerative joint disease) GERD (gastroesophageal reflux disease) Hyperlipidemia Hypertension Insomnia Prediabetes Seasonal allergies Smoking history Surgical History History of ear surgery Hx of cholecystectomy Hx of colonoscopy Hx of dilation and curettage Hx of oral surgery S/P laparoscopic sleeve gastrectomy Family History Mother Hypertension Spinal stenosis Arthritis Kidney disease Father Diabetes Hypertension COPD (chronic obstructive pulmonary disease) Daughter Stomach problems Son Stomach problems Social History Household Members: None Housing: Apartment Housing Other:: mobile home Are you a primary housekeeper caregiver to a significant other at home: No Do you presently have visiting nurse or other home services: No Alcohol intake: current Alcohol intake frequency: does not drink Patient Tobacco Use Status: Former Tobacco user Quit Date: 08/27/22 Tobacco use type: Cigarette service: No Physical Exam Vital Signs: Last Vital Signs Temp 97.8 F 10/24/22 08:27 Pulse 67 10/24/22 08:27 BP 148/77 H 10/24/22 08:27 Pulse Ox 95 10/24/22 08:27 Oxygen Delivery Method Room Air 10/24/22 08:27 BMI result Body Mass Index 31.6 GI Inspection: Yes incision (well healed) Assessment & Plan Assessment & Plan (1) S/P laparoscopic sleeve gastrectomy: Code(s): Z98.84 - Bariatric surgery status Plan: f/u Delmis as scheduled Stop mashed potatoes malaysian yogurt yogurt drink isopure flavorless shake 1 scoop in 8 oz water x 2 talk w Delmis about MVI and Basim+D Exercise is great, continue Medications: Discontinued pantoprazole 40 mg PO DAILY 90 tabs 0RF K21.9 - Gastro-esophageal reflux disease without esophagitis Coding Level of Care Code Global (85179) Diagnoses S/P laparoscopic sleeve gastrectomy Z98.84
[2022-10-24 08:27] VITALS: BP 148/77; PULSE 67; TEMP 36.6; O2SAT 95; BMI 31.6
== END 2022-10-24 09:01 | disposition home or self-care (01) ==
PROVIDERS: PCP Internal Medicine; Visit Provider Physician Assistant Surgical
DX: E66.9 Obesity, unspecified (principal); Z68.31 Body mass index [BMI] 31.0-31.9, adult; Z90.3 Acquired absence of stomach [part of]; Z98.84 Bariatric surgery status
CPT/HCPCS: 99024

== ENCOUNTER → 2022-10-24 08:18 | Outpatient (BNVA) | payer OTHER, SELFPAY | PROVIDERS: PCP Internal Medicine; Visit Provider Physician Assistant Surgical | DX: Z98.84 Bariatric surgery status (principal) ==

== ENCOUNTER → 2022-11-01 17:17 | Outpatient (BNVA) | payer OTHER, SELFPAY | PROVIDERS: PCP Internal Medicine; Visit Provider Counselor Mental Health ==

== ENCOUNTER 2022-11-06 09:10 | Outpatient (AMB) | payer OTHER, SELFPAY ==
--- NOTE | 2022-11-06 09:13 | A.OFFVIS_ITS ---
Intake VS Expanded 11/06/22 09:39 Height 5 ft 6 in Weight 194 lb BMI 31.3 Body Fat 83.4 Body Fat Percentage 42.9 Muscle Mass 105.4 Visceral Mass 10 Water Mass 79.0 BMR 1,545 Intake Visit Reasons: (OV) PO LSG 09/20/22 Allergies No Known Allergies Allergy (Verified 10/24/22 08:24) HPI Nutrition Presentation Details LSG DOS (09/20/22) Preop weight 213# weight at 1 wk PO 205# Last weight 10/24 195# current weihgt at 7 WKS PO 194# Reason for consult elevated BMI Diet Assmnt Details Pt states, i haven't been following any plan . Having a drinkable yogurt (10g protein, 7g sugar, 80 calories Dannon), plus a mission protein wrap with 4 slices of turkey and 1/2 slice cheese. She has been eating a lot of fruit - watermelon yesterday, applesauce, mandarin oranges etc. has also been eating raw veg not good at planning my meals ahead of time Vitamins: I gave her vitamin samples last time we spoke - soft chews and 3in1 but she disliked everything. Also gave procare samples 45mg iron, hasn't tried yet. Has been taking B1 and B12 Exercise: 40 minutes on stationary bike plus 1 mile walk in the morning, then will repeat in the evenings. Dietary counseling reduction Assessment Nutrition recommendation RD nutrition education Diagnosis Nutrition problem #1 overweight/obesity As related to (etiology) #1 excess energy intake and physical inactivity As evidenced by (sign/symptom) #1 high BMI Nutrition problem #2 undesirable food choices As related to (etiology) #2 unsure how to apply info and unwilling to learn/apply As evidenced by (sign/symptom) #2 food recall Monitoring/Goals Nutrition problem monitoring total energy intake, level of knowledge/skill, total PRO intake, total CHO intake and weight Outcome progress verbalized understanding Learning/Education Readiness to learn good Most Recent Diabetes Results: Cholesterol 124 mg/dL 09/14/22 HDL Cholesterol 38 mg/dL 09/14/22 Triglycerides 108 mg/dL 09/14/22 Creatinine 0.79 mg/dL (0.5-1.4) 09/21/22 Blood Urea Nitrogen 6 mg/dL (9-16) L 09/21/22 Sodium 137 mmol/L (135-145) 09/21/22 Potassium 4.2 mmol/L (3.3-5.1) 09/21/22 Chloride 107 mmol/L (96-108) 09/21/22 Carbon Dioxide 20 mmol/L (22-29) L 09/21/22 Calcium 9.5 mg/dL (8.4-10.2) 09/21/22 AST 17 U/L (5-31) 09/14/22 ALT 18 U/L (0-31) 09/14/22 Total Protein 7.6 g/dL (6.5-8.0) 09/14/22 Albumin 3.9 g/dL (3.5-5.0) 09/14/22 [facility] Medical History Anxiety Arthritis BMI 35.0-35.9,adult COPD (chronic obstructive pulmonary disease) Depression DJD (degenerative joint disease) GERD (gastroesophageal reflux disease) Hyperlipidemia Hypertension Insomnia Prediabetes Seasonal allergies Smoking history Surgical History History of ear surgery Hx of cholecystectomy Hx of colonoscopy Hx of dilation and curettage Hx of oral surgery S/P laparoscopic sleeve gastrectomy Family History Mother Hypertension Spinal stenosis Arthritis Kidney disease Father Diabetes Hypertension COPD (chronic obstructive pulmonary disease) Daughter Stomach problems Son Stomach problems Social History Household Members: None Housing: Apartment Housing Other:: mobile home Are you a primary medicare biller to a significant other at home: No Do you presently have visiting nurse or other home services: No Alcohol intake: current Alcohol intake frequency: does not drink Patient Tobacco Use Status: Former Tobacco user Quit Date: 08/27/22 Tobacco use type: Cigarette service: No Assessment & Plan Assessment & Plan (1) Obesity (BMI 30-39.9): Code(s): E66.9 - Obesity, unspecified Medications: Discontinued pantoprazole 40 mg PO DAILY 90 tabs 0RF K21.9 - Gastro-esophageal reflux disease without esophagitis Patient Instructions: Recommended she review her bariatric book as a reminder of what she should do/avoid for this stage. verbally discussed as well. Discussed factors that can stretch stomach out, and reason for dietary recommendations. Suggested avoiding cooked veg for now until she is able to meet her protein needs. Swap out some cardio for weight training. Will start bariatric vitamins now, contact me if any concerns or reason she is until to take them Chobani 25g yogurt OR can try smoothie with 1/2 serving strawberries, 1/2 banana, fairlife milk and protein powder - make last 2-3 hours lunch: 2oz protein - EX 1/2 wrap with 2 slices of turkey S: glass of fairlife milk or protein bar, or yogurt D 2oz protein F/u with me 11/20 8:30 am OV per pt preference . Encouraged communication in the meantime if she is unable to meet her protein goals or follow her nutrition plan. Coding Level of Care Code Nutr Indiv Subseq (32165) Diagnoses Obesity (BMI 30-39.9) E66.9 Time Spent (min) 30
[2022-11-06 09:39] VITALS: BMI 31.3
== END 2022-11-06 09:54 | disposition home or self-care (01) ==
PROVIDERS: PCP Internal Medicine; Visit Provider Dietitian, Registered
DX: E66.9 Obesity, unspecified (principal)

== ENCOUNTER → 2022-11-06 09:10 | Outpatient (BNVA) | payer OTHER, SELFPAY | PROVIDERS: PCP Internal Medicine; Visit Provider Dietitian, Registered | DX: E66.9 Obesity, unspecified (principal); K21.9 Gastro-esophageal reflux disease without esophagitis; Z68.31 Body mass index [BMI] 31.0-31.9, adult; Z90.49 Acquired absence of other specified parts of digestive tract; Z90.3 Acquired absence of stomach [part of]; Z71.3 Dietary counseling and surveillance | CPT/HCPCS: 97803 ==

== ENCOUNTER 2022-11-20 08:17 | Outpatient (AMB) | payer OTHER, SELFPAY ==
--- NOTE | 2022-11-20 08:23 | MHC.AMNUTRGE ---
Intake VS Expanded 11/20/22 08:42 Height 5 ft 6 in Weight 191 lb BMI 30.8 Body Fat 82.4 Body Fat Percentage 43.0 Muscle Mass 103.2 Visceral Mass 10 Water Mass 77.4 BMR 1,517 Intake Visit Reasons: (OV) PO LSG 09/20/22 Allergies No Known Allergies Allergy (Verified 10/24/22 08:24) HPI Nutrition Presentation Details LSG DOS (09/20/22) Preop weight 213# weight at 1 wk PO 205# weihgt at 7 WKS PO 194# weight at 9 wks PO 191# Reason for consult elevated BMI Diet Assmnt Details Having 2 drinkable yogurt (each 10g protein, 7g sugar, 80 calories Dannon), plus a 45kcal mission protein wrap with tuna and 1 slice cheese - last appt recommended not having the wrap. Logs tis emal in tracker at 35g protein for 270kcal dinner last night 2.5oz grilled terikayi chicken Is doing better with portions, keeping them under 3oz food total. doing better solids/liquids Vitamins: I gave her vitamin samples procare 45mg iron and taking, tolerating fine . Exercise: 40 minutes on stationary bike plus 1 mile walk in the morning, then will repeat in the evenings. Is also planning to include 3 days strength training as we discussed last appt Dietary counseling reduction Assessment Nutrition recommendation RD nutrition education Diagnosis Nutrition problem #1 overweight/obesity As related to (etiology) #1 excess energy intake and physical inactivity As evidenced by (sign/symptom) #1 high BMI Monitoring/Goals Nutrition problem monitoring total energy intake, level of knowledge/skill, total PRO intake, total CHO intake and weight Outcome progress progressing Learning/Education Readiness to learn good Stages of change action Educational materials provided Yes Most Recent Diabetes Results: Cholesterol 124 mg/dL 09/14/22 HDL Cholesterol 38 mg/dL 09/14/22 Triglycerides 108 mg/dL 09/14/22 Creatinine 0.79 mg/dL (0.5-1.4) 09/21/22 Blood Urea Nitrogen 6 mg/dL (9-16) L 09/21/22 Sodium 137 mmol/L (135-145) 09/21/22 Potassium 4.2 mmol/L (3.3-5.1) 09/21/22 Chloride 107 mmol/L (96-108) 09/21/22 Carbon Dioxide 20 mmol/L (22-29) L 09/21/22 Calcium 9.5 mg/dL (8.4-10.2) 09/21/22 AST 17 U/L (5-31) 09/14/22 ALT 18 U/L (0-31) 09/14/22 Total Protein 7.6 g/dL (6.5-8.0) 09/14/22 Albumin 3.9 g/dL (3.5-5.0) 09/14/22 PFSH Medical History Anxiety Arthritis BMI 35.0-35.9,adult COPD (chronic obstructive pulmonary disease) Depression DJD (degenerative joint disease) GERD (gastroesophageal reflux disease) Hyperlipidemia Hypertension Insomnia Prediabetes Seasonal allergies Smoking history Surgical History History of ear surgery Hx of cholecystectomy Hx of colonoscopy Hx of dilation and curettage Hx of oral surgery S/P laparoscopic sleeve gastrectomy Family History Mother Hypertension Spinal stenosis Arthritis Kidney disease Father Diabetes Hypertension COPD (chronic obstructive pulmonary disease) Daughter Stomach problems Son Stomach problems Social History Household Members: None Housing: Apartment Housing Other:: mobile home Are you a primary resident care provider to a significant other at home: No Do you presently have visiting nurse or other home services: No Alcohol intake: current Alcohol intake frequency: does not drink Patient Tobacco Use Status: Former Tobacco user Quit Date: 08/27/22 Tobacco use type: Cigarette service: No Assessment & Plan Assessment & Plan (1) Obesity (BMI 30-39.9): Code(s): E66.9 - Obesity, unspecified Medications: Discontinued pantoprazole 40 mg PO DAILY 90 tabs 0RF K21.9 - Gastro-esophageal reflux disease without esophagitis Patient Instructions: Doing better getting enough protein, monitoring portions, and following post bariatric diet recs. no changes made, but recommended avoiding low carb wraps for now to focus on protein. Provided patient samples Pro Care bariatric vitamin 45 mg per day. Recommended adding calcium supplement 600 mg daily. f/u at 3 MO PO appt 12/21 8:30. continue to avoid raw fruits/veg until then and communicate any issues if not meeting protein needs Coding Level of Care Code Nutr Indiv Subseq (39278) Diagnoses Obesity (BMI 30-39.9) E66.9 Time Spent (min) 30
[2022-11-20 08:42] VITALS: BMI 30.8
== END 2022-11-20 08:42 | disposition home or self-care (01) ==
PROVIDERS: PCP Internal Medicine; Visit Provider Dietitian, Registered
DX: E66.9 Obesity, unspecified (principal)

== ENCOUNTER → 2022-11-20 08:17 | Outpatient (BNVA) | payer OTHER, SELFPAY | PROVIDERS: PCP Internal Medicine; Visit Provider Dietitian, Registered | DX: E66.9 Obesity, unspecified (principal); Z68.30 Body mass index [BMI] 30.0-30.9, adult; R73.03 Prediabetes; Z98.84 Bariatric surgery status; Z71.3 Dietary counseling and surveillance | CPT/HCPCS: 97803 ==

== ENCOUNTER → 2022-11-29 19:59 | Outpatient (BNVA) | payer OTHER, SELFPAY | PROVIDERS: PCP Internal Medicine; Visit Provider Counselor Mental Health ==

== ENCOUNTER 2022-12-06 19:07 | Outpatient (AMB) | payer OTHER, SELFPAY ==
--- NOTE | 2022-12-13 14:37 | MHC.WMTHER ---
Intake Intake Visit Reasons: group therapy Allergies No Known Allergies Allergy (Verified 10/24/22 08:24) PFSH Medical History Anxiety Arthritis BMI 35.0-35.9,adult COPD (chronic obstructive pulmonary disease) Depression DJD (degenerative joint disease) GERD (gastroesophageal reflux disease) Hyperlipidemia Hypertension Insomnia Prediabetes Seasonal allergies Smoking history Surgical History History of ear surgery Hx of cholecystectomy Hx of colonoscopy Hx of dilation and curettage Hx of oral surgery S/P laparoscopic sleeve gastrectomy Family History Mother Hypertension Spinal stenosis Arthritis Kidney disease Father Diabetes Hypertension COPD (chronic obstructive pulmonary disease) Daughter Stomach problems Son Stomach problems Social History Household Members: None Housing: Apartment Housing Other:: mobile home Are you a primary daycare provider to a significant other at home: No Do you presently have visiting nurse or other home services: No Alcohol intake: current Alcohol intake frequency: does not drink Patient Tobacco Use Status: Former Tobacco user Quit Date: 08/27/22 Tobacco use type: Cigarette service: No Behavioral Health Assessment Weight Management Therapy Therapy Notes Details Patient is several months post weight loss surgery. She is attending therapy group to help build and implement appropriate life style habits and coping mechanisms in place of food. Group session today on boundaries, patient shared appropriately and offered support to others. Pt is looking to have weight loss surgery to help improve her health and quality of life. Pt reported being in therapy 2-3 years ago but not currently. She reported having a high stress job and always experiences vicarious trauma through her work so at times reaches out for help. Pt is taking medication for depression/anxiety prescribed by her doctor. No history of drug or alcohol abuse, or inpatient psychiatric admissions. Presenting Concerns Referral Source provider Reason for referral weight loss surgery evaluation Precipitating Event obesity Living Situation Current Living Situation Own At risk of losing current housing? No Satisfied with current living situation? Yes Comments Pt lives with her . Food/Weight/Diet Expectations of change weight loss and maintenance History/Relationship with food She stated that her father was the person who always made the meals in her home, he made everything from scratch but not healthy. She stated that everyone in her family is obese and they were never taught to stop eating when they are full. Pt stated that she herself does not likes to cook so she would often eat frozen foods, fast food, takeout, easy meals, lots of coffee and coca cola. History/Relationship with weight Pt reported that she was overweight since middle school and then had a thyroid infection which caused her to loose excess weight, initially she was being called anorexic or bulimic until they find out about her thyroid. She then started to gain weight in her 30's but was thin until then. She is currently at her heaviest. History/Relationship with dieting 10-15lbs with WW and exercise. Binge Eating Do you frequently eat large amounts of food in short periods of time, not feeling physically hungry? No Do you feel out of control when you eat a large amount of food in a short period of time? No Do you eat large amounts of food rapidly and typically alone? No Night Eating Do you wake up at least once during the night to eat? No If you wake up in the night, do you find that it is necessary to eat something in order to fall back asleep? No Do you have little or no appetite in the morning and feel very hungry in the evening, often overeating between dinner and when you go to bed? No Social History Family history and relationship She has been to her for 5 years and they have been together for 8. She has two adult children from her first marriage. Pt is one of 3 siblings, the youngest raised by her parents in a normal upbringing. 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 Cultural/Ethnic information Legal Involvement and History Current or historical involvement with the legal system? none Education Highest grade completed high school Preferred learning style Auditory, Verbal, Written, Learn by doing and Visual Currently enrolled in educational program? No Interested in further educational program? 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 None Service Service? No Mental Health and Addiction Treatment Current/Past substance abuse? No Current/Past addictive behavior concerns? No Medical and Physical Health Summary Physical exam in the last year? Yes Medications Is the patient compliant with medications? Yes Does the patient have Almonte Guardian in place? Not applicable Does the patient use complimentary health approaches? No Trauma/Abuse History History of trauma? No Assessment & Plan Assessment & Plan (1) Adjustment reaction with anxiety and depression: Code(s): F43.23 - Adjustment disorder with mixed anxiety and depressed mood (2) Obesity: Code(s): E66.9 - Obesity, unspecified Plan Patient is post bariatric surgery and in need of ongoing support to help reach her goals. She is appropriate for group therapy. Coding Level of Care Code Grp Psych (98622) Diagnoses Adjustment reaction with anxiety and depression F43.23 Obesity E66.9 Time Spent (min) 60
== END 2022-12-08 09:56 | disposition home or self-care (01) ==
LOC: HO.HBST 19:07
PROVIDERS: PCP Internal Medicine; Visit Provider Counselor Mental Health
DX: F43.23 Adjustment disorder with mixed anxiety and depressed mood (principal); E66.9 Obesity, unspecified; Z68.30 Body mass index [BMI] 30.0-30.9, adult
CPT/HCPCS: 99499

== ENCOUNTER → 2022-12-06 19:07 | Outpatient (BNVA) | payer OTHER, SELFPAY | PROVIDERS: PCP Internal Medicine; Visit Provider Counselor Mental Health ==

== ENCOUNTER → 2022-12-26 08:12 | Outpatient (BNVA) | payer OTHER, SELFPAY | PROVIDERS: PCP Internal Medicine; Visit Provider Dietitian, Registered | DX: E66.9 Obesity, unspecified (principal); R73.03 Prediabetes; Z98.84 Bariatric surgery status; Z71.3 Dietary counseling and surveillance | CPT/HCPCS: 97803 ==

== ENCOUNTER 2022-12-27 19:14 | Outpatient (AMB) | payer OTHER, SELFPAY ==
--- NOTE | 2023-01-03 11:05 | A.OFFWM_ITS ---
Intake Intake Visit Reasons: Group Therapy Allergies No Known Allergies Allergy (Verified 10/24/22 08:24) PFSH Medical History Anxiety Arthritis BMI 35.0-35.9,adult COPD (chronic obstructive pulmonary disease) Depression DJD (degenerative joint disease) GERD (gastroesophageal reflux disease) Hyperlipidemia Hypertension Insomnia Prediabetes Seasonal allergies Smoking history Surgical History History of ear surgery Hx of cholecystectomy Hx of colonoscopy Hx of dilation and curettage Hx of oral surgery S/P laparoscopic sleeve gastrectomy Family History Mother Hypertension Spinal stenosis Arthritis Kidney disease Father Diabetes Hypertension COPD (chronic obstructive pulmonary disease) Daughter Stomach problems Son Stomach problems Social History Household Members: None Housing: Apartment Housing Other:: mobile home Are you a primary health care facility administrator to a significant other at home: No Do you presently have visiting nurse or other home services: No Alcohol intake: current Alcohol intake frequency: does not drink Patient Tobacco Use Status: Former Tobacco user Quit Date: 08/27/22 Tobacco use type: Cigarette service: No Behavioral Health Assessment Weight Management Therapy Therapy Notes Details Group therapy session, continuing the conversation on emotional/binge eating from previous weeks workshop. Discussed somatic therapies and POV of the disordered eating as a symptom. Patient was enagaged and cooperative. Patient is several months post weight loss surgery. She is attending therapy group to help build and implement appropriate life style habits and coping mechanisms in place of food. Group session today on boundaries, patient shared appropriately and offered support to others. Pt is looking to have weight loss surgery to help improve her health and quality of life. Pt reported being in therapy 2-3 years ago but not currently. She reported having a high stress job and always experiences vicarious trauma through her work so at times reaches out for help. Pt is taking medication for depression/anxiety prescribed by her doctor. No history of drug or alcohol abuse, or inpatient psychiatric admissions. Presenting Concerns Referral Source provider Reason for referral weight loss surgery evaluation Precipitating Event obesity Living Situation Current Living Situation Own At risk of losing current housing? No Satisfied with current living situation? Yes Comments Pt lives with her . Food/Weight/Diet Expectations of change weight loss and maintenance History/Relationship with food She stated that her father was the person who always made the meals in her home, he made everything from scratch but not healthy. She stated that everyone in her family is obese and they were never taught to stop eating when they are full. Pt stated that she herself does not likes to cook so she would often eat frozen foods, fast food, takeout, easy meals, lots of coffee and coca cola. History/Relationship with weight Pt reported that she was overweight since middle school and then had a thyroid infection which caused her to loose excess weight, initially she was being called anorexic or bulimic until they find out about her thyroid. She then started to gain weight in her 30's but was thin until then. She is currently at her heaviest. History/Relationship with dieting 10-15lbs with WW and exercise. Binge Eating Do you frequently eat large amounts of food in short periods of time, not feeling physically hungry? No Do you feel out of control when you eat a large amount of food in a short period of time? No Do you eat large amounts of food rapidly and typically alone? No Night Eating Do you wake up at least once during the night to eat? No If you wake up in the night, do you find that it is necessary to eat something in order to fall back asleep? No Do you have little or no appetite in the morning and feel very hungry in the evening, often overeating between dinner and when you go to bed? No Social History Family history and relationship She has been to her for 5 years and they have been together for 8. She has two adult children from her first marriage. Pt is one of 3 siblings, the youngest raised by her parents in a normal upbringing. 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 Cultural/Ethnic information Legal Involvement and History Current or historical involvement with the legal system? none Education Highest grade completed high school Preferred learning style Auditory, Verbal, Written, Learn by doing and Visual Currently enrolled in educational program? No Interested in further educational program? 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 None Service Service? No Mental Health and Addiction Treatment Current/Past substance abuse? No Current/Past addictive behavior concerns? No Medical and Physical Health Summary Physical exam in the last year? Yes Medications Is the patient compliant with medications? Yes Does the patient have Almonte Guardian in place? Not applicable Does the patient use complimentary health approaches? No Trauma/Abuse History History of trauma? No Assessment & Plan Assessment & Plan (1) Adjustment reaction with anxiety and depression: Code(s): F43.23 - Adjustment disorder with mixed anxiety and depressed mood (2) Obesity: Code(s): E66.9 - Obesity, unspecified Plan Patient is post bariatric surgery and in need of ongoing support to help reach her goals. She is appropriate for group therapy. Coding Level of Care Code Grp Psych (93579) Diagnoses Adjustment reaction with anxiety and depression F43.23 Obesity E66.9 Time Spent (min) 60
== END 2023-01-03 11:05 | disposition home or self-care (01) ==
LOC: HO.HBST 19:14
PROVIDERS: PCP Internal Medicine; Visit Provider Counselor Mental Health
DX: F43.23 Adjustment disorder with mixed anxiety and depressed mood (principal); E66.9 Obesity, unspecified; Z68.35 Body mass index [BMI] 35.0-35.9, adult

== ENCOUNTER → 2022-12-27 19:14 | Outpatient (BNVA) | payer OTHER, SELFPAY | PROVIDERS: PCP Internal Medicine; Visit Provider Counselor Mental Health | DX: F43.23 Adjustment disorder with mixed anxiety and depressed mood (principal); E66.9 Obesity, unspecified; Z98.84 Bariatric surgery status | CPT/HCPCS: 90853 ==

== ENCOUNTER 2023-01-10 19:32 | Outpatient (AMB) | payer OTHER, SELFPAY ==
--- NOTE | 2023-01-29 11:30 | A.OFFWM_ITS ---
Intake Intake Visit Reasons: group therapy Allergies No Known Allergies Allergy (Verified 10/24/22 08:24) [facility] Medical History Anxiety Arthritis BMI 35.0-35.9,adult COPD (chronic obstructive pulmonary disease) Depression DJD (degenerative joint disease) GERD (gastroesophageal reflux disease) Hyperlipidemia Hypertension Insomnia Prediabetes Seasonal allergies Smoking history Surgical History History of ear surgery Hx of cholecystectomy Hx of colonoscopy Hx of dilation and curettage Hx of oral surgery S/P laparoscopic sleeve gastrectomy Family History Mother Hypertension Spinal stenosis Arthritis Kidney disease Father Diabetes Hypertension COPD (chronic obstructive pulmonary disease) Daughter Stomach problems Son Stomach problems Social History Household Members: None Housing: Apartment Housing Other:: mobile home Are you a primary critical care registered nurse to a significant other at home: No Do you presently have visiting nurse or other home services: No Alcohol intake: current Alcohol intake frequency: does not drink Patient Tobacco Use Status: Former Tobacco user Quit Date: 08/27/22 Tobacco use type: Cigarette service: No Behavioral Health Assessment Weight Management Therapy Therapy Notes Details Group therapy on fear and seven steps to help. She was actively participating and engaged. Patient is several months post weight loss surgery. She is attending therapy group to help build and implement appropriate life style habits and coping mechanisms in place of food. Group session today on boundaries, patient shared appropriately and offered support to others. Pt is looking to have weight loss surgery to help improve her health and quality of life. Pt reported being in therapy 2-3 years ago but not currently. She reported having a high stress job and always experiences vicarious trauma through her work so at times reaches out for help. Pt is taking medication for depression/anxiety prescribed by her doctor. No history of drug or alcohol abuse, or inpatient psychiatric admissions. Presenting Concerns Referral Source provider Reason for referral weight loss surgery evaluation Precipitating Event obesity Living Situation Current Living Situation Own At risk of losing current housing? No Satisfied with current living situation? Yes Comments Pt lives with her . Food/Weight/Diet Expectations of change weight loss and maintenance History/Relationship with food She stated that her father was the person who always made the meals in her home, he made everything from scratch but not healthy. She stated that everyone in her family is obese and they were never taught to stop eating when they are full. Pt stated that she herself does not likes to cook so she would often eat frozen foods, fast food, takeout, easy meals, lots of coffee and coca cola. History/Relationship with weight Pt reported that she was overweight since middle school and then had a thyroid infection which caused her to loose excess weight, initially she was being called anorexic or bulimic until they find out about her thyroid. She then started to gain weight in her 30's but was thin until then. She is currently at her heaviest. History/Relationship with dieting 10-15lbs with WW and exercise. Binge Eating Do you frequently eat large amounts of food in short periods of time, not feeling physically hungry? No Do you feel out of control when you eat a large amount of food in a short period of time? No Do you eat large amounts of food rapidly and typically alone? No Night Eating Do you wake up at least once during the night to eat? No If you wake up in the night, do you find that it is necessary to eat something in order to fall back asleep? No Do you have little or no appetite in the morning and feel very hungry in the evening, often overeating between dinner and when you go to bed? No Social History Family history and relationship She has been to her for 5 years and they have been together for 8. She has two adult children from her first marriage. Pt is one of 3 siblings, the youngest raised by her parents in a no [facility] upbringing. 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 Cultural/Ethnic information Legal Involvement and History Current or historical involvement with the legal system? none Education Highest grade completed high school Preferred learning style Auditory, Verbal, Written, Learn by doing and Visual Currently enrolled in educational program? No Interested in further educational program? 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 None Service Service? No Mental Health and Addiction Treatment Current/Past substance abuse? No Current/Past addictive behavior concerns? No Medical and Physical Health Summary Physical exam in the last year? Yes Medications Is the patient compliant with medications? Yes Does the patient have Almonte Guardian in place? Not applicable Does the patient use complimentary health approaches? No Trauma/Abuse History History of trauma? No Assessment & Plan Assessment & Plan (1) Adjustment reaction with anxiety and depression: Code(s): F43.23 - Adjustment disorder with mixed anxiety and depressed mood (2) Obesity: Code(s): E66.9 - Obesity, unspecified Plan Patient is post bariatric surgery and in need of ongoing support to help reach her goals. She is appropriate for group therapy. Coding Level of Care Code Grp Psych (91047) Diagnoses Adjustment reaction with anxiety and depression F43.23 Obesity E66.9 Time Spent (min) 60
== END 2023-01-29 11:27 | disposition home or self-care (01) ==
LOC: HO.HBST 19:32
PROVIDERS: PCP Internal Medicine; Visit Provider Counselor Mental Health
DX: F43.23 Adjustment disorder with mixed anxiety and depressed mood (principal); E66.9 Obesity, unspecified; Z68.31 Body mass index [BMI] 31.0-31.9, adult

== ENCOUNTER → 2023-01-10 19:32 | Outpatient (BNVA) | payer OTHER, SELFPAY | PROVIDERS: PCP Internal Medicine; Visit Provider Counselor Mental Health | DX: F43.23 Adjustment disorder with mixed anxiety and depressed mood (principal); E66.9 Obesity, unspecified | CPT/HCPCS: 90853 ==

== ENCOUNTER → 2023-01-17 17:00 | Outpatient (BNVA) | payer OTHER, SELFPAY | PROVIDERS: PCP Internal Medicine; Visit Provider Counselor Mental Health ==

== ENCOUNTER → 2023-01-24 08:30 | Outpatient (BNVA) | payer OTHER, SELFPAY | PROVIDERS: PCP Internal Medicine; Visit Provider Dietitian, Registered | DX: E66.9 Obesity, unspecified (principal); Z68.29 Body mass index [BMI] 29.0-29.9, adult; R73.03 Prediabetes; Z98.84 Bariatric surgery status; F43.23 Adjustment disorder with mixed anxiety and depressed mood | CPT/HCPCS: 90853; 97803 ==

== ENCOUNTER 2023-01-24 19:01 | Outpatient (AMB) | payer OTHER, SELFPAY ==
--- NOTE | 2023-01-25 09:12 | A.OFFWM_ITS ---
Intake Intake Visit Reasons: group therapy Allergies No Known Allergies Allergy (Verified 10/24/22 08:24) [facility] Medical History Anxiety Arthritis BMI 35.0-35.9,adult COPD (chronic obstructive pulmonary disease) Depression DJD (degenerative joint disease) GERD (gastroesophageal reflux disease) Hyperlipidemia Hypertension Insomnia Prediabetes Seasonal allergies Smoking history Surgical History History of ear surgery Hx of cholecystectomy Hx of colonoscopy Hx of dilation and curettage Hx of oral surgery S/P laparoscopic sleeve gastrectomy Family History Mother Hypertension Spinal stenosis Arthritis Kidney disease Father Diabetes Hypertension COPD (chronic obstructive pulmonary disease) Daughter Stomach problems Son Stomach problems Social History Household Members: None Housing: Apartment Housing Other:: mobile home Are you a primary senior resident care director to a significant other at home: No Do you presently have visiting nurse or other home services: No Alcohol intake: current Alcohol intake frequency: does not drink Patient Tobacco Use Status: Former Tobacco user Quit Date: 08/27/22 Tobacco use type: Cigarette service: No Behavioral Health Assessment Weight Management Therapy Therapy Notes Details Group therapy session on Hurry sickness , reducing stress, busy over load and analysis of time management. Patient was cooperative, engaged and supportive. Patient is several months post weight loss surgery. She is attending therapy group to help build and implement appropriate life style habits and coping mechanisms in place of food. Group session today on boundaries, patient shared appropriately and offered support to others. Pt is looking to have weight loss surgery to help improve her health and quality of life. Pt reported being in therapy 2-3 years ago but not currently. She re ported having a high stress job and always experiences vicarious trauma through her work so at times reaches out for help. Pt is taking medication for depression/anxiety prescribed by her doctor. No history of drug or alcohol abuse, or inpatient psychiatric admissions. Presenting Concerns Referral Source provider Reason for referral weight loss surgery evaluation Precipitating Event obesity Living Situation Current Living Situation Own At risk of losing current housing? No Satisfied with current living situation? Yes Comments Pt lives with her . Food/Weight/Diet Expectations of change weight loss and maintenance History/Relationship with food She stated that her father was the person who always made the meals in her home, he made everything from scratch but not healthy. She stated that everyone in her family is obese and they were never taught to stop eating when they are full. Pt stated that she herself does not likes to cook so she would often eat frozen foods, fast food, takeout, easy meals, lots of coffee and coca cola. History/Relationship with weight Pt reported that she was overweight since middle school and then had a thyroid infection which caused her to loose excess weight, initially she was being called anorexic or bulimic until they find out about her thyroid. She then started to gain weight in her 30's but was thin until then. She is currently at her heaviest. History/Relationship with dieting 10-15lbs with WW and exercise. Binge Eating Do you frequently eat large amounts of food in short periods of time, not feeling physically hungry? No Do you feel out of control when you eat a large amount of food in a short period of time? No Do you eat large amounts of food rapidly and typically alone? No Night Eating Do you wake up at least once during the night to eat? No If you wake up in the night, do you find that it is necessary to eat something in order to fall back asleep? No Do you have little or no appetite in the morning and feel very hungry in the evening, often overeating between dinner and when you go to bed? No Social History Family history and relationship She has been to her for 5 years and they have been together for 8. She has two adult children from her first marriage. Pt is one of 3 siblings, the youngest raised by her parents in a normal upbringing. 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 Cultural/Ethnic information Legal Involvement and History Current or historical involvement with the legal system? none Education Highest grade completed high school Preferred learning style Auditory, Verbal, Written, Learn by doing and Visual Currently enrolled in educational program? No Interested in further educational program? 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 None Service Service? No Mental Health and Addiction Treatment Current/Past substance abuse? No Current/Past addictive behavior concerns? No Medical and Physical Health Summary Physical exam in the last year? Yes Medications Is the patient compliant with medications? Yes Does the patient have Almonte Guardian in place? Not applicable Does the patient use complimentary health approaches? No Trauma/Abuse History History of trauma? No Assessment & Plan Assessment & Plan (1) Adjustment reaction with anxiety and depression: Code(s): F43.23 - Adjustment disorder with mixed anxiety and depressed mood (2) Obesity: Code(s): E66.9 - Obesity, unspecified Plan Patient is post bariatric surgery and in need of ongoing support to help reach her goals. She is appropriate for group therapy. Coding Level of Care Code Grp Psych (64118) Diagnoses Adjustment reaction with anxiety and depression F43.23 Obesity E66.9 Time Spent (min) 60
== END 2023-01-25 09:06 | disposition home or self-care (01) ==
LOC: HO.HBST 19:01
PROVIDERS: PCP Internal Medicine; Visit Provider Counselor Mental Health
DX: F43.23 Adjustment disorder with mixed anxiety and depressed mood (principal); E66.9 Obesity, unspecified; Z68.29 Body mass index [BMI] 29.0-29.9, adult

== ENCOUNTER → 2023-01-31 18:59 | Outpatient (BNVA) | payer OTHER, SELFPAY | PROVIDERS: PCP Internal Medicine; Visit Provider Counselor Mental Health | DX: F43.23 Adjustment disorder with mixed anxiety and depressed mood (principal); E66.9 Obesity, unspecified ==

== ENCOUNTER → 2023-01-31 18:59 | Outpatient (BNVA) | payer OTHER, SELFPAY | PROVIDERS: PCP Internal Medicine; Visit Provider Counselor Mental Health | DX: F43.23 Adjustment disorder with mixed anxiety and depressed mood (principal); E66.9 Obesity, unspecified ==

== ENCOUNTER 2023-03-02 08:18 | Outpatient (AMB) | payer OTHER, SELFPAY ==
--- NOTE | 2023-03-02 07:54 | A.OFFVIS_ITS ---
Intake VS Expanded 03/02/23 09:21 Height 5 ft 6 in Weight 179 lb BMI 28.9 Body Fat % 41.1 Body Fat Mass 73.6 Fat Free Mass 105.4 Visceral Fat Rating 9 Body Water % 41.9 Body Water Mass 75 Muscle Mass/Score 100 Basal Metabolic Rate/Score 1,461 Intake Visit Reasons: (OV) PO LSG 09/20/22 Allergies No Known Allergies Allergy (Verified 10/24/22 08:24) HPI Nutrition Presentation Details LSG DOS (09/20/22) Preop weight 213# weight at 1 wk PO 205# weihgt at 7 WKS PO 194# weight at 9 wks PO 191# weight at 3MO 185# Last weight at 4MO PO 182 current weight at 5.5MO PO 179# Noted body composition , is losing body fat only, minimal muscle mass since surgery We discussed a goal weight of 140-150 lb Reason for consult elevated BMI Diet Assmnt Details reports for jim, did really well. Reports this gave her a lot of confidence to manage other social situations/holidays has a food scale but doesn't use it 8;30-9am citizen of [place] yogurt , or a drinkable yogurt (10-13g protein) - tried higher protein yogurts in the past and disliked but she is willing to try again. She is not excited about using protein shakes but I encouraged she try different brands and Flavors to help improve her protein intake 12pm-1pm tuna and a serving of cheese sometimes a protein bar - zone perfect chicken or pork Hydration: adequate 80oz Vitamins: celebrate One 18 tolerating fine . Exercise: got a gym membership, florian a few times per week (3-4x per week) Goes to therapy groups and peer support groups in the program - these have been tremendously helpful . we discussed the information that would have been presented at the workshop for managing the holidays Dietary counseling reduction Assessment Nutrition recommendation RD nutrition education Diagnosis Nutrition problem #1 overweight/obesity As related to (etiology) #1 excess energy intake and physical inactivity As evidenced by (sign/symptom) #1 high BMI Monitoring/Goals Nutrition problem monitoring total energy intake, level of knowledge/skill, total PRO intake, total CHO intake and weight Outcome progress progressing Learning/Education Readiness to learn good Stages of change action Educational materials provided Yes Most Recent Diabetes Results: No Data to Display PFSH Medical History Anxiety Arthritis BMI 35.0-35.9,adult COPD (chronic obstructive pulmonary disease) Depression DJD (degenerative joint disease) GERD (gastroesophageal reflux disease) Hyperlipidemia Hypertension Insomnia Prediabetes Seasonal allergies Smoking history Surgical History History of ear surgery Hx of cholecystectomy Hx of colonoscopy Hx of dilation and curettage Hx of oral surgery S/P laparoscopic sleeve gastrectomy Family History Mother Hypertension Spinal stenosis Arthritis Kidney disease Father Diabetes Hypertension COPD (chronic obstructive pulmonary disease) Daughter Stomach problems Son Stomach problems Social History Household Members: None Housing: Apartment Housing Other:: mobile home Are you a primary resident care director to a significant other at home: No Do you presently have visiting nurse or other home services: No Alcohol intake: current Alcohol intake frequency: does not drink Patient Tobacco Use Status: Former Tobacco user Quit Date: 08/27/22 Tobacco use type: Cigarette service: No Assessment & Plan Assessment & Plan (1) Overweight (BMI 25.0-29.9): Code(s): E66.3 - Overweight Plan due for routine 6 MO PA Appt. will need labs as well. continue to prioritize protein and include veg in meals when able. resume f/u with me for 7 MO Appt Coding Level of Care Code Nutr Indiv Subseq (43322) Diagnoses Overweight (BMI 25.0-29.9) E66.3 Time Spent (min) 30
[2023-03-02 09:21] VITALS: BMI 28.9
== END 2023-03-02 09:22 | disposition home or self-care (01) ==
PROVIDERS: PCP Internal Medicine; Visit Provider Dietitian, Registered
DX: E66.3 Overweight (principal)

== ENCOUNTER → 2023-03-02 08:18 | Outpatient (BNVA) | payer OTHER, SELFPAY | PROVIDERS: PCP Internal Medicine; Visit Provider Dietitian, Registered | DX: E66.3 Overweight (principal); Z68.28 Body mass index [BMI] 28.0-28.9, adult; Z98.84 Bariatric surgery status; Z71.3 Dietary counseling and surveillance | CPT/HCPCS: 97803 ==

== ENCOUNTER → 2023-03-07 19:00 | Outpatient (BNVA) | payer OTHER, SELFPAY | PROVIDERS: PCP Internal Medicine; Visit Provider Counselor Mental Health | DX: F43.23 Adjustment disorder with mixed anxiety and depressed mood (principal); E66.9 Obesity, unspecified ==

== ENCOUNTER → 2023-04-04 20:22 | Outpatient (BNVA) | payer OTHER, SELFPAY | PROVIDERS: PCP Internal Medicine; Visit Provider Counselor Mental Health ==

== ENCOUNTER → 2023-04-04 20:22 | Outpatient (BNVA) | payer OTHER, SELFPAY | PROVIDERS: PCP Internal Medicine; Visit Provider Counselor Mental Health ==

== ENCOUNTER → 2023-04-11 19:03 | Outpatient (BNVA) | payer OTHER, SELFPAY | PROVIDERS: PCP Internal Medicine; Visit Provider Counselor Mental Health ==

== ENCOUNTER → 2023-04-11 19:03 | Outpatient (BNVA) | payer OTHER, SELFPAY | PROVIDERS: PCP Internal Medicine; Visit Provider Counselor Mental Health ==

== ENCOUNTER 2023-05-02 19:53 | Outpatient (AMB) | payer OTHER, SELFPAY ==
--- NOTE | 2023-10-31 11:25 | MHC.WMTHER ---
Intake Intake Visit Reasons: Group Therapy Allergies No Known Allergies Allergy (Verified 05/09/23 14:31) PFSH Medical History Anxiety Arthritis BMI 35.0-35.9,adult COPD (chronic obstructive pulmonary disease) Depression DJD (degenerative joint disease) GERD (gastroesophageal reflux disease) Hyperlipidemia Hypertension Insomnia Prediabetes Seasonal allergies Smoking history Surgical History S/P laparoscopic sleeve gastrectomy Hx of dilation and curettage Hx of oral surgery Hx of colonoscopy History of ear surgery Hx of cholecystectomy Family History Mother Hypertension Spinal stenosis Arthritis Kidney disease Father Diabetes Hypertension COPD (chronic obstructive pulmonary disease) Daughter Stomach problems Son Stomach problems Social History Household Members: None Housing: Apartment Housing Other:: mobile home Are you a primary healthcare customer service to a significant other at home: No Do you presently have visiting nurse or other home services: No Alcohol intake: current Alcohol intake frequency: does not drink Patient Tobacco Use Status: Former Tobacco user Tobacco use type: Cigarette service: No Behavioral Health Assessment Weight Management Therapy Therapy Notes Details Group therapy session. We discussed the emotional eating cycle, negative thoughts and feelings associated with that. Used worksheet to help gain awareness on how our bodies feels versus reaching for food immediately. Mayi was engaged, supportive, and shared appropriately. Assessment & Plan Assessment & Plan (1) Adjustment reaction with anxiety and depression: Code(s): F43.23 - Adjustment disorder with mixed anxiety and depressed mood (2) Obesity: Code(s): E66.9 - Obesity, unspecified Plan Patient is post bariatric surgery and in need of ongoing support to help reach her goals. She is appropriate for group therapy. Coding Level of Care Code Grp Psych ([id number]) Diagnoses Adjustment reaction with anxiety and depression F43.23 Obesity E66.9 Time Spent (min) 60
== END 2023-05-02 20:00 | disposition home or self-care (01) ==
LOC: HO.HBST 19:53
PROVIDERS: PCP Internal Medicine; Visit Provider Counselor Mental Health
DX: F43.23 Adjustment disorder with mixed anxiety and depressed mood (principal); E66.9 Obesity, unspecified; Z68.30 Body mass index [BMI] 30.0-30.9, adult
CPT/HCPCS: 99499

== ENCOUNTER → 2023-05-02 19:53 | Outpatient (BNVA) | payer OTHER, SELFPAY | PROVIDERS: PCP Internal Medicine; Visit Provider Counselor Mental Health ==

== ENCOUNTER 2023-05-09 14:19 | Outpatient (AMB) | payer OTHER, SELFPAY ==
--- NOTE | 2023-05-09 14:28 | A.OFFVIS_ITS ---
Intake VS Expanded 05/09/23 14:37 BP 133/83 Blood Pressure Location Rt brachial Blood Pressure Position Sitting Pulse 90 Pulse Source Pulse Oximeter Temp 98.6 F Temperature Source Temporal Artery Scan Pulse Oximetry 95 Oxygen Delivery Method Room Air Height 5 ft 6 in Weight 183 lb 3.2 oz BMI 29.6 Body Fat % 40.0 Body Fat Mass 73.2 Fat Free Mass 109.8 Visceral Fat Rating 9.0 Body Water % 42.7 Body Water Mass 78.0 Muscle Mass/Score 104.2 Basal Metabolic Rate/Score 1,513 Intake Visit Reasons: (OV) PO LSG 09/20/22 Study Lead Required: No Allergies No Known Allergies Allergy (Verified 05/09/23 14:31) Medication List - Last Reconciled 05/09/23 by ISHA Mcdowell albuterol sulfate 90 mcg/actuation 2 puffs inhalation Q6H PRN clonazepam 0.5 mg PO DAILY PRN nystatin 1 appl topical BID PRN sertraline 150 mg PO QAM [unjury w iron MVI PO DAILY] HPI HPI Comments History of Present Illness Details This?a?53?yo female who is s/p LSG without hiatal hernia repair on?09/20/22. Presents for 8 month post op visit. Weight today is 183.2 pounds, with a BMI of 29.5. There has been a 56.8 pound weight loss,(initial weight 240 pounds) since starting the program on 07/07/22 reflecting a 23.6% total body weight loss and a weight loss of 35.3 pounds since surgery (operative weight 2 18.5 pounds) reflecting a 16.1% TBWL since surgery. No complaints of nausea, emesis, abdominal pain or reflux. Reports infrequent but normal bowel movements every 1-2 days and uses stool softeners regularly. Continues to use a non-nicotine vape pen Present meal plan includes: iced coffee w isopure unflavored 1/2 scoop x 2 ZP bar, 10 g protein, or mohawk yogurt meal w protein and veg, 4 oz protein and 3-4 oz veg. another bar during the day if needed (5 of 7 days per week) Drinking 55-60 oz water daily Exercise routine includes: stationary bike at home 300-500 calories 4 x per week, changes in dwight burned based on her mood over the last 10 days, none in the last 2 months [facility] Medical History Anxiety Arthritis BMI 35.0-35.9,adult COPD (chronic obstructive pulmonary disease) Depression DJD (degenerative joint disease) GERD (gastroesophageal reflux disease) Hyperlipidemia Hypertension Insomnia Prediabetes Seasonal allergies Smoking history Surgical History S/P laparoscopic sleeve gastrectomy Hx of dilation and curettage Hx of oral surgery Hx of colonoscopy History of ear surgery Hx of cholecystectomy Family History Mother Hypertension Spinal stenosis Arthritis Kidney disease Father Diabetes Hypertension COPD (chronic obstructive pulmonary disease) Daughter Stomach problems Son Stomach problems Social History Household Members: None Housing: Apartment Housing Other:: mobile home Are you a primary acute care nurse practitioner to a significant other at home: No Do you presently have visiting nurse or other home services: No Alcohol intake: current Alcohol intake frequency: does not drink Patient Tobacco Use Status: Former Tobacco user Quit Date: 08/27/22 Tobacco use type: Cigarette service: No Physical Exam Const General: cooperative and no acute distress Orientation/consciousness: patient oriented x3 Resp Effort & Inspection: normal respiratory effort Auscultation: clear to auscultation bilaterally Cardio Rate: regular rate Rhythm: regular rhythm GI Inspection: Yes normal to inspection and Yes incision (well healed) Palpation (GI): Soft to palpation and no masses Neuro General: patient oriented x3 Assessment & Plan Assessment & Plan (1) S/P laparoscopic sleeve gastrectomy: Code(s): Z98.84 - Bariatric surgery status Plan: Will check six-month postoperative labs. She will eliminate the 2nd bar that she is having. We will refer her back to [facility] for more formal meal planning. She was encouraged to continue weight training, prior to cardio. She was encouraged to quit the vape pen. Continue bariatric multivitamin. Return to clinic 4-6 weeks. Orders: Orders Hemoglobin A1c Today E51.9 - Thiamine deficiency, unspecified, E53.8 - Deficiency of other specified B group vitamins, E55.9 - Vitamin D deficiency, unspecified, E78.5 - Hyperlipidemia, unspecified, I10 - Essential (primary) hypertension, K74.00 - Hepatic fibrosis, unspecified, R73.03 - Prediabetes, Z98.84 - Bariatric surgery status Lipid Panel Today E51.9 - Thiamine deficiency, unspecified, E53.8 - Deficiency of other specified B group vitamins, E55.9 - Vitamin D deficiency, unspecified, E78.5 - Hyperlipidemia, unspecified, I10 - Essential (primary) hypertension, K74.00 - Hepatic fibrosis, unspecified, R73.03 - Prediabetes, Z98.84 - Bariatric surgery status Vitamin B12 and Folate Today E51.9 - Thiamine deficiency, unspecified, E53.8 - Deficiency of other specified B group vitamins, E55.9 - Vitamin D deficiency, unspecified, E78.5 - Hyperlipidemia, unspecified, I10 - Essential (primary) hypertension, K74.00 - Hepatic fibrosis, unspecified, R73.03 - Prediabetes, Z98.84 - Bariatric surgery status Vitamin B1 Today E51.9 - Thiamine deficiency, unspecified, E53.8 - Deficiency of other specified B group vitamins, E55.9 - Vitamin D deficiency, unspecified, E78.5 - Hyperlipidemia, unspecified, I10 - Essential (primary) hypertension, K74.00 - Hepatic fibrosis, unspecified, R73.03 - Prediabetes, Z98.84 - Bariatric surgery status Vitamin A Today E51.9 - Thiamine deficiency, unspecified, E53.8 - Deficiency of other specified B group vitamins, E55.9 - Vitamin D deficiency, unspecified, E7 8.5 - Hyperlipidemia, unspecified, I10 - Essential (primary) hypertension, K74.00 - Hepatic fibrosis, unspecified, R73.03 - Prediabetes, Z98.84 - Bariatric surgery status TSH reflex Free T4 Today E51.9 - Thiamine deficiency, unspecified, E53.8 - Deficiency of other specified B group vitamins, E55.9 - Vitamin D deficiency, unspecified, E78.5 - Hyperlipidemia, unspecified, I10 - Essential (primary) hypertension, K74.00 - Hepatic fibrosis, unspecified, R73.03 - Prediabetes, Z98.84 - Bariatric surgery status Vitamin D 25-OH Total Today E51.9 - Thiamine deficiency, unspecified, E53.8 - Deficiency of other specified B group vitamins, E55.9 - Vitamin D deficiency, unspecified, E78.5 - Hyperlipidemia, unspecified, I10 - Essential (primary) hype rtension, K74.00 - Hepatic fibrosis, unspecified, R73.03 - Prediabetes, Z98.84 - Bariatric surgery status Insulin Today E51.9 - Thiamine deficiency, unspecified, E53.8 - Deficiency of other specified B group vitamins, E55.9 - Vitamin D deficiency, unspecified, E78.5 - Hyperlipidemia, unspecified, I10 - Essential (primary) hypertension, K74.00 - Hepatic fibrosis, unspecified, R73.03 - Prediabetes, Z98.84 - Bariatric surgery status Complete Blood Count Auto Diff Today E51.9 - Thiamine deficiency, unspecified, E53.8 - Deficiency of other specified B group vitamins, E55.9 - Vitamin D deficiency, unspecified, E78.5 - Hyperlipidemia, unspecified, I10 - Essential (primary) hypertension, K74.00 - Hepatic fibrosis, unspecified, R73.03 - Prediabetes, Z98.84 - Bariatric surgery status IRON PROFILE Today E51.9 - Thiamine deficiency, unspecified, E53.8 - Deficiency of other specified B group vitamins, E55.9 - Vitamin D deficiency, unspecified, E78.5 - Hyperlipidemia, unspecified, I10 - Essential (primary) hypertension, K74.00 - Hepatic fibrosis, unspecified, R73.03 - Prediabetes, Z98.84 - Bariatric surgery status Zinc Today E51.9 - Thiamine deficiency, unspecified, E53.8 - Deficiency of other specified B group vitamins, E55.9 - Vitamin D deficiency, unspecified, E78.5 - Hyperlipidemia, unspecified, I10 - Essential (primary) hypertension, K74.00 - Hepatic fibrosis, unspecified, R73.03 - Prediabetes, Z98.84 - Bariatric surgery status C Reactive Protein Today E51.9 - Thiamine deficiency, unspecified, E53.8 - Deficiency of other specified B group vitamins, E55.9 - Vitamin D deficiency, unspecified, E78.5 - Hyperlipidemia, unspecified, I10 - Essential (primary) hypertension, K74.00 - Hepatic fibrosis, unspecified, R73.03 - Prediabetes, Z98.84 - Bariatric surgery status Ferritin Today E51.9 - Thiamine deficiency, unspecified, E53.8 - Deficiency of other specified B group vitamins, E55.9 - Vitamin D deficiency, unspecified, E78.5 - Hyperlipidemia, unspecified, I10 - Essential (primary) hypertension, K74.00 - Hepatic fibrosis, unspecified, R73.03 - Prediabetes, Z98.84 - Bariatric surgery status Basic Metabolic Panel Today E51.9 - Thiamine deficiency, unspecified, E53.8 - Deficiency of other specified B group vitamins, E55.9 - Vitamin D deficiency, unspecified, E78.5 - Hyperlipidemia, unspecified, I10 - Essential (primary) hypertension, K74.00 - Hepatic fibrosis, unspecified, R73.03 - Prediabetes, Z98.84 - Bariatric surgery status Coding Level of Care Code Est Pt Level 4 (13525) Diagnoses S/P laparoscopic sleeve gastrectomy Z98.84 Time Spent (min) 40
[2023-05-09 14:37] VITALS: BP 133/83; PULSE 90; TEMP 37; O2SAT 95; BMI 29.6
== END 2023-05-09 14:56 | disposition home or self-care (01) ==
PROVIDERS: PCP Internal Medicine; Visit Provider Physician Assistant Surgical
DX: E66.9 Obesity, unspecified (principal); Z98.84 Bariatric surgery status; Z90.3 Acquired absence of stomach [part of]; Z68.29 Body mass index [BMI] 29.0-29.9, adult
CPT/HCPCS: 99214

== ENCOUNTER → 2023-05-09 14:19 | Outpatient (BNVA) | payer OTHER, SELFPAY | PROVIDERS: PCP Internal Medicine; Visit Provider Physician Assistant Surgical ==

== ENCOUNTER 2023-05-12 07:15 | Outpatient (REF) | payer OTHER, SELFPAY ==
[2023-05-12 07:50] LABS: MANUAL DIFF FLAG NO
[2023-05-12 08:34] LABS: Basophils Absolute Auto 0.1 X10*3/uL (0.0-0.2); Basophils Percent Auto 1.2 % (0-2); Eosinophils Absolute Auto 0.5 X10*3/uL (0.0-0.4); Eosinophils Percent Auto 6.5 % (0-4); Hematocrit 40.8 % (37.0-47.0); Hemoglobin 13.7 g/dl (12.0-16.0); Imm Gran Abs Auto 0.01 X10*3/uL (0.00-0.03); Imm Gran Pct Auto 0.1 % (0.0-0.4); Lymphocytes Absolute Auto 1.7 X10*3/uL (1.2-4.9); Lymphocytes Percent Auto 23.9 % (20-40); Mean Corpuscular HGB Conc 33.6 g/dl (31.0-35.0); Mean Corpuscular Hemoglobin 32.3 pg (27.0-33.0); Mean Corpuscular Volume 96.2 fL (80.0-98.0); Mean Platelet Volume 13.7 fL (9.4-12.3); Monocytes Absolute Auto 0.6 X10*3/uL (0.1-1.2); Neutrophils Absolute Auto 4.1 x10*3/uL (2.0-8.3); Neutrophils Percent Auto 59.3 % (45-73); Platelet Count 165 X10*3/uL (160-400); Red Blood Count 4.24 X10*6/uL (4.20-5.50); Red Cell Distribution Width 12.3 % (11.0-16.0); White Blood Count 6.9 X10*3/uL (4.8-10.8)
[2023-05-12 08:38] LABS: Estimated Average Glucose 100 mg/dL; Hemoglobin A1c % 5.1 % (<6.0)
[2023-05-12 08:51] LABS: Anion Gap 13 (12-20); Blood Urea Nitrogen 10 mg/dL (9-16); Calcium 9.8 mg/dL (8.4-10.2); Carbon Dioxide 29 mmol/L (22-29); Chloride 104 mmol/L (96-108); Cholesterol 183 mg/dL (<200); Estimated Glomerular Filt Rate > 60; Glucose Random 90 mg/dL (60-115); HDL Cholesterol 59 mg/dL (>40); Iron 73 mcg/dL (30-160); LDL Cholesterol Calculated 98 mg/dL (<100); Percent Iron Saturation 25 % (15-50); Potassium 3.9 mmol/L (3.3-5.1); Sodium 142 mmol/L (135-145); Total Iron Binding Capacity 289 mcg/dL (228-428); Triglycerides 133 mg/dL (<150); Unsaturated Iron Binding 216 ug/dL
[2023-05-12 09:18] LABS: Ferritin 71 ng/mL (10-250); Folate 15.2 ng/mL (> or = 4.0); TSH reflex Free T4 1.83 uIU/mL (0.32-4.0); Vitamin B12 663 pg/mL (200-900); Vitamin D 25-OH Total 40.8 ng/mL (>30)
[2023-05-12 09:28] LABS: Insulin 9 uU/mL (2-29)
[2023-05-16 03:09] LABS: Zinc 87 mcg/dL (60-130)
[2023-05-16 17:24] LABS: Vitamin A 59 mcg/dL (38-98)
[2023-05-19 17:24] LABS: Vitamin B1 34 nmol/L (8-30)
== END 2023-05-12 07:16 | disposition home or self-care (01) ==
LOC: HO.LAB 07:15
PROVIDERS: PCP Internal Medicine; Visit Provider Physician Assistant Surgical
DX: K74.00 Hepatic fibrosis, unspecified (principal); E55.9 Vitamin D deficiency, unspecified; E53.8 Deficiency of other specified B group vitamins; E51.9 Thiamine deficiency, unspecified; I10 Essential (primary) hypertension; E78.5 Hyperlipidemia, unspecified; R73.03 Prediabetes; Z98.84 Bariatric surgery status
CPT/HCPCS: 36415; 80048; 80061; 82306; 82607; 82728; 82746; 83036; 83525; 83540; 84425; 84443; 84590; 84630; 85025; 86140

== ENCOUNTER 2023-05-16 17:00 | Outpatient (AMB) | payer OTHER, SELFPAY ==
--- NOTE | 2023-05-19 10:50 | A.OFFWM_ITS ---
Intake Intake Visit Reasons: Group Therapy Allergies No Known Allergies Allergy (Verified 05/09/23 14:31) PFSH Medical History Anxiety Arthritis BMI 35.0-35.9,adult COPD (chronic obstructive pulmonary disease) Depression DJD (degenerative joint disease) GERD (gastroesophageal reflux disease) Hyperlipidemia Hypertension Insomnia Prediabetes Seasonal allergies Smoking history Surgical History S/P laparoscopic sleeve gastrectomy Hx of dilation and curettage Hx of oral surgery Hx of colonoscopy History of ear surgery Hx of cholecystectomy Family History Mother Hypertension Spinal stenosis Arthritis Kidney disease Father Diabetes Hypertension COPD (chronic obstructive pulmonary disease) Daughter Stomach problems Son Stomach problems Social History Household Members: None Housing: Apartment Housing Other:: mobile home Are you a primary menagerie caretaker to a significant other at home: No Do you presently have visiting nurse or other home services: No Alcohol intake: current Alcohol intake frequency: does not drink Patient Tobacco Use Status: Former Tobacco user Quit Date: 08/27/22 Tobacco use type: Cigarette service: No Behavioral Health Assessment Weight Management Therapy Therapy Notes Details Group therapy on mindset; fixed versus growth mindset. Patient participated and was able to identify some areas of need in order to improve growth mindset. She shared her struggles and successes as well as supported others. Assessment & Plan Assessment & Plan (1) Adjustment reaction with anxiety and depression: Code(s): F43.23 - Adjustment disorder with mixed anxiety and depressed mood (2) Obesity: Code(s): E66.9 - Obesity, unspecified Plan Patient is post bariatric surgery and in need of ongoing support to help reach her goals. She is appropriate for group therapy. Coding Level of Care Code Grp Psych (02061) Diagnoses Adjustment reaction with anxiety and depression F43.23 Obesity E66.9 Time Spent (min) 60
== END 2023-05-19 10:50 | disposition home or self-care (01) ==
LOC: HO.HBST 05-17 08:22
PROVIDERS: PCP Internal Medicine; Visit Provider Counselor Mental Health
DX: F43.23 Adjustment disorder with mixed anxiety and depressed mood (principal); E66.9 Obesity, unspecified; Z68.35 Body mass index [BMI] 35.0-35.9, adult

== ENCOUNTER → 2023-05-16 17:00 | Outpatient (BNVA) | payer OTHER, SELFPAY | PROVIDERS: PCP Internal Medicine; Visit Provider Counselor Mental Health | DX: F43.23 Adjustment disorder with mixed anxiety and depressed mood (principal); E66.9 Obesity, unspecified | CPT/HCPCS: 90853 ==

== ENCOUNTER 2023-05-23 20:41 | Outpatient (AMB) | payer OTHER, SELFPAY ==
--- NOTE | 2023-05-24 12:14 | MHC.WMTHER ---
Intake Intake Visit Reasons: Group Therapy Allergies No Known Allergies Allergy (Verified 05/09/23 14:31) PFSH Medical History Anxiety Arthritis BMI 35.0-35.9,adult COPD (chronic obstructive pulmonary disease) Depression DJD (degenerative joint disease) GERD (gastroesophageal reflux disease) Hyperlipidemia Hypertension Insomnia Prediabetes Seasonal allergies Smoking history Surgical History S/P laparoscopic sleeve gastrectomy Hx of dilation and curettage Hx of oral surgery Hx of colonoscopy History of ear surgery Hx of cholecystectomy Family History Mother Hypertension Spinal stenosis Arthritis Kidney disease Father Diabetes Hypertension COPD (chronic obstructive pulmonary disease) Daughter Stomach problems Son Stomach problems Social History Household Members: None Housing: Apartment Housing Other:: mobile home Are you a primary aged or disabled care worker to a significant other at home: No Do you presently have visiting nurse or other home services: No Alcohol intake: current Alcohol intake frequency: does not drink Patient Tobacco Use Status: Former Tobacco user Quit Date: 08/27/22 Tobacco use type: Cigarette service: No Behavioral Health Assessment Weight Management Therapy Therapy Notes Details Group therapy on mindset shifts and benefits of growth mindset. patient shared and helped support others. Assessment & Plan Assessment & Plan (1) Adjustment reaction with anxiety and depression: Code(s): F43.23 - Adjustment disorder with mixed anxiety and depressed mood (2) Obesity: Code(s): E66.9 - Obesity, unspecified Plan Patient is post bariatric surgery and in need of ongoing support to help reach her goals. She is appropriate for group therapy. Coding Level of Care Code Grp Psych ([id number]) Diagnoses Adjustment reaction with anxiety and depression F43.23 Obesity E66.9 Time Spent (min) 60
== END 2023-05-24 12:14 | disposition home or self-care (01) ==
LOC: HO.HBST 20:41
PROVIDERS: PCP Internal Medicine; Visit Provider Counselor Mental Health
DX: F43.23 Adjustment disorder with mixed anxiety and depressed mood (principal); E66.9 Obesity, unspecified; Z68.35 Body mass index [BMI] 35.0-35.9, adult

== ENCOUNTER → 2023-05-23 20:41 | Outpatient (BNVA) | payer OTHER, SELFPAY | PROVIDERS: PCP Internal Medicine; Visit Provider Counselor Mental Health | DX: F43.23 Adjustment disorder with mixed anxiety and depressed mood (principal); E66.9 Obesity, unspecified; Z98.84 Bariatric surgery status | CPT/HCPCS: 90853 ==

== ENCOUNTER 2023-06-11 14:28 | Outpatient (AMB) | payer OTHER, SELFPAY ==
--- NOTE | 2023-06-11 14:03 | MHC.AMNUTRGE ---
Intake VS Expanded 06/11/23 14:26 Height 5 ft 6 in Weight 189 lb BMI 30.5 Intake Visit Reasons: (tV) PO LSG 09/20/22 Dye Jig Operator Required: No Allergies No Known Allergies Allergy (Verified 05/09/23 14:31) HPI Nutrition Presentation Details LSG DOS (09/20/22) Preop weight 213# weight at 7 WKS PO 194# weight at 3MO 185# weight at 4MO PO 182 weight at 5.5MO PO 179# Current weight 189# - 10# weight gain since the last appt We discussed a goal weight of 140-150 lb Reason for consult elevated BMI Diet Assmnt Details Lost two family members recently . I am not following any plan snacking/grazing . skipping meals Skips breakfast or protein coffee snacking on whatever sometimes a protein bar - zone perfect reports inconsistent appetite Hydration: adequate 80oz Vitamins: celebrate One 18 tolerating fine . Exercise: got a gym membership, gonig a few times per week (3-4x per week) States she feels the need to lose 20# before July for her daughters wedding. she is interested in Wegovy or Zepbound Dietary counseling reduction Diagnosis Nutrition problem #1 overweight/obesity As related to (etiology) #1 excess energy intake and physical inactivity As evidenced by (sign/symptom) #1 high BMI Monitoring/Goals Nutrition problem monitoring total energy intake, level of knowledge/skill, total PRO intake, total CHO intake and weight Learning/Education Readiness to learn good Stages of change relapse Most Recent Diabetes Results: Cholesterol 183 mg/dL (<200) 05/12/23 HDL Cholesterol 59 mg/dL (>40) 05/12/23 Triglycerides 133 mg/dL (<150) 05/12/23 Creatinine 0.86 mg/dL (0.5-1.4) 05/12/23 Blood Urea Nitrogen 10 mg/dL (9-16) 05/12/23 Sodium 142 mmol/L (135-145) 05/12/23 Potassium 3.9 mmol/L (3.3-5.1) 05/12/23 Chloride 104 mmol/L (96-108) 05/12/23 Carbon Dioxide 29 mmol/L (22-29) 05/12/23 Calcium 9.8 mg/dL (8.4-10.2) 05/12/23 [facility] Medical History Anxiety Arthritis BMI 35.0-35.9,adult COPD (chronic obstructive pulmonary disease) Depression DJD (degenerative joint disease) GERD (gastroesophageal reflux disease) Hyperlipidemia Hypertension Insomnia Prediabetes Seasonal allergies Smoking history Surgical History S/P laparoscopic sleeve gastrectomy Hx of dilation and curettage Hx of oral surgery Hx of colonoscopy History of ear surgery Hx of cholecystectomy Family History Mother Hypertension Spinal stenosis Arthritis Kidney disease Father Diabetes Hypertension COPD (chronic obstructive pulmonary disease) Daughter Stomach problems Son Stomach problems Social History Household Members: None Housing: Apartment Housing Other:: mobile home Are you a primary med care manager to a significant other at home: No Do you presently have visiting nurse or other home services: No Alcohol intake: current Alcohol intake frequency: does not drink Patient Tobacco Use Status: Former Tobacco user Quit Date: 08/27/22 Tobacco use type: Cigarette service: No Assessment & Plan Assessment & Plan (1) Obesity (BMI 30-39.9): Code(s): E66.9 - Obesity, unspecified Plan Encouraged resuming high protein, structured plan and discused several food and shake/bar options. she will communicate with office in 1 month for a followup appt with provider Telehealth Telehealth Location of provider rendering services: practice address Location of patient: address on file Patient Identification confirmed using: Name, : Yes Telehealth method: voice only Patient verbally consented to treatment: Yes Patient verbally consented to billing insurance company: Yes Patient informed of any privacy concerns related to visit: Yes Minutes spent on Phone/Video with Pt.: 30 Coding Level of Care Code Nutr Indiv Subseq ([id number]) Diagnoses Obesity (BMI 30-39.9) E66.9 Time Spent (min) 30
[2023-06-11 14:26] VITALS: BMI 30.5
== END 2023-06-11 14:41 | disposition home or self-care (01) ==
LOC: HO.HBS 14:29
PROVIDERS: PCP Internal Medicine; Visit Provider Dietitian, Registered
DX: E66.9 Obesity, unspecified (principal)

== ENCOUNTER → 2023-06-11 14:28 | Outpatient (BNVA) | payer OTHER, SELFPAY | PROVIDERS: PCP Internal Medicine; Visit Provider Dietitian, Registered | DX: E66.9 Obesity, unspecified (principal); Z68.30 Body mass index [BMI] 30.0-30.9, adult; Z98.84 Bariatric surgery status; Z71.3 Dietary counseling and surveillance | CPT/HCPCS: 97803 ==

== ENCOUNTER 2023-06-20 17:15 | Outpatient (AMB) | payer OTHER, SELFPAY ==
--- NOTE | 2023-10-31 16:12 | A.OFFWM_ITS ---
Intake Intake Visit Reasons: group therapy Allergies No Known Allergies Allergy (Verified 05/09/23 14:31) PFSH Medical History Anxiety Arthritis BMI 35.0-35.9,adult COPD (chronic obstructive pulmonary disease) Depression DJD (degenerative joint disease) GERD (gastroesophageal reflux disease) Hyperlipidemia Hypertension Insomnia Prediabetes Seasonal allergies Smoking history Surgical History S/P laparoscopic sleeve gastrectomy Hx of dilation and curettage Hx of oral surgery Hx of colonoscopy History of ear surgery Hx of cholecystectomy Family History Mother Hypertension Spinal stenosis Arthritis Kidney disease Father Diabetes Hypertension COPD (chronic obstructive pulmonary disease) Daughter Stomach problems Son Stomach problems Social History Household Members: None Housing: Apartment Housing Other:: mobile home Are you a primary respiratory care technician to a significant other at home: No Do you presently have visiting nurse or other home services: No Alcohol intake: current Alcohol intake frequency: does not drink Patient Tobacco Use Status: Former Tobacco user Tobacco use type: Cigarette service: No Behavioral Health Assessment Weight Management Therapy Therapy Notes Details Group therapy session, participants discussed struggles, improvements, and supported each other. Topic was on motivation and making new habits. Pt was engaged and participated appropriately. Assessment & Plan Assessment & Plan (1) Adjustment reaction with anxiety and depression: Code(s): F43.23 - Adjustment disorder with mixed anxiety and depressed mood (2) Obesity: Code(s): E66.9 - Obesity, unspecified Plan Patient is post bariatric surgery and in need of ongoing support to help reach her goals. She is appropriate for group therapy. Coding Level of Care Code Grp Psych ([id number]) Diagnoses Adjustment reaction with anxiety and depression F43.23 Obesity E66.9 Time Spent (min) 60
== END 2023-06-20 18:15 | disposition home or self-care (01) ==
PROVIDERS: PCP Internal Medicine; Visit Provider Counselor Mental Health
DX: F43.23 Adjustment disorder with mixed anxiety and depressed mood (principal); E66.9 Obesity, unspecified; Z68.30 Body mass index [BMI] 30.0-30.9, adult
CPT/HCPCS: 99499

== ENCOUNTER → 2023-06-20 20:11 | Outpatient (BNVA) | payer OTHER, SELFPAY | PROVIDERS: PCP Internal Medicine; Visit Provider Counselor Mental Health ==

== ENCOUNTER 2023-07-11 17:15 | Outpatient (AMB) | payer OTHER, SELFPAY ==
--- NOTE | 2023-10-31 16:03 | MHC.WMTHER ---
Intake Intake Visit Reasons: group therapy Allergies No Known Allergies Allergy (Verified 05/09/23 14:31) PFSH Medical History Anxiety Arthritis BMI 35.0-35.9,adult COPD (chronic obstructive pulmonary disease) Depression DJD (degenerative joint disease) GERD (gastroesophageal reflux disease) Hyperlipidemia Hypertension Insomnia Prediabetes Seasonal allergies Smoking history Surgical History S/P laparoscopic sleeve gastrectomy Hx of dilation and curettage Hx of oral surgery Hx of colonoscopy History of ear surgery Hx of cholecystectomy Family History Mother Hypertension Spinal stenosis Arthritis Kidney disease Father Diabetes Hypertension COPD (chronic obstructive pulmonary disease) Daughter Stomach problems Son Stomach problems Social History Household Members: None Housing: Apartment Housing Other:: mobile home Are you a primary residential care facility manager to a significant other at home: No Do you presently have visiting nurse or other home services: No Alcohol intake: current Alcohol intake frequency: does not drink Patient Tobacco Use Status: Former Tobacco user Tobacco use type: Cigarette service: No Behavioral Health Assessment Weight Management Therapy Therapy Notes Details Group therapy session, participants discussed struggles, improvements, and supported each other. Topic was on motivation and making new habits. Pt was engaged and participated appropriately. Assessment & Plan Assessment & Plan (1) Adjustment reaction with anxiety and depression: Code(s): F43.23 - Adjustment disorder with mixed anxiety and depressed mood (2) Obesity: Code(s): E66.9 - Obesity, unspecified Plan Patient is post bariatric surgery and in need of ongoing support to help reach her goals. She is appropriate for group therapy. Coding Level of Care Code Grp Psych ([id number]) Diagnoses Adjustment reaction with anxiety and depression F43.23 Obesity E66.9 Time Spent (min) 60
== END 2023-07-11 18:15 | disposition home or self-care (01) ==
PROVIDERS: PCP Internal Medicine; Visit Provider Counselor Mental Health
DX: F43.23 Adjustment disorder with mixed anxiety and depressed mood (principal); E66.9 Obesity, unspecified; Z68.30 Body mass index [BMI] 30.0-30.9, adult
CPT/HCPCS: 99499

== ENCOUNTER → 2023-07-11 20:39 | Outpatient (BNVA) | payer OTHER, SELFPAY | PROVIDERS: PCP Internal Medicine; Visit Provider Counselor Mental Health ==